=== PATIENT | male | born 1940 | race Caucasian/White ===

== ENCOUNTER 2017-03-25 12:05 | Observation (INO) | payer MEDICARE ==
--- NOTE | 2017-03-25 13:28 | RAD ---
INDICATION: Syncope COMPARISON: June 04, 2004 TECHNIQUE: PA and lateral dual-energy views were obtained. FINDINGS: Bones/Soft Tissues: There are no acute bony findings. There is hypertrophic change about the anterior left first rib, unchanged Cardiomediastinal: The cardiomediastinal silhouette is normal. Lungs: There are no infiltrates. Pleura: There are no pleural effusions. Other: None IMPRESSION: NO ACTIVE DISEASE.
[2017-03-25 13:44] LABS: Hematocrit 48 % (42-52); Mean Corpuscular HGB Conc 34 g/dl (31-36); Mean Corpuscular Hemoglobin 32 pg (27-31); Mean Corpuscular Volume 95 fL (80-94); Mean Platelet Volume 10 um3 (7.4-10.4); Red Cell Distribution Width 14 % (10.5-15); White Blood Count 8.7 10^3/ul (3.5-10.8)
--- NOTE | 2017-03-25 13:53 | RAD ---
HISTORY: Fall, syncope COMPARISONS: None TECHNIQUE: Multiple contiguous axial CT scans were obtained of the head without intravenous contrast. FINDINGS: The study is limited by patient motion artifact. HEMORRHAGE/INFARCT: There is no hemorrhage or acute infarct. MASSES/SHIFT: There is no mass or shift. EXTRA-AXIAL SPACES: There are no extra-axial fluid collections. SULCI AND VENTRICLES: The sulci and ventricles are normal in size and position for the patient's stated age. CEREBRUM: There are no focal parenchymal abnormalities. BRAINSTEM: There are no focal parenchymal abnormalities. CEREBELLUM: There are no focal parenchymal abnormalities. VESSELS: The vessels are grossly normal. PARANASAL SINUSES: The paranasal sinuses are clear. ORBITS: The orbits are unremarkable. BONES AND SOFT TISSUE: No bone or soft tissue abnormalities are noted. OTHER: None IMPRESSION: NO ACUTE INTRACRANIAL PATHOLOGY.
[2017-03-25 13:58] LABS: Albumin 4.3 g/dL (3.2-5.2); BUN/Creatinine Ratio 31.4 (8-20); Calcium 9.9 mg/dL (8.6-10.3); EGFR African American 111.5 (>60); EGFR Non-African American 86.7 (>60); Potassium 3.8 mmol/L (3.5-5.0); Total Bilirubin 0.9 mg/dL (0.2-1.0); Total Protein 7.3 g/dL (6.4-8.9)
[2017-03-25 14:00] LABS: Troponin I 0.01 ng/mL (<0.04)
--- NOTE | 2017-03-25 15:35 | ADMNOTE ---
Subjective Date of Service: 03/25/17 Interval History: ADMISSION HISTORY AND PHYSICAL EXAM: Allergies Allergy/AdvReac Type Severity Reaction Status Date / Time No Known Allergies Allergy Verified 02/05/12 08:05 Home Medications Medication Instructions Recorded Confirmed Type Carbidopa/Levodop 25/100 MG(*) 2 tab PO TID 02/05/12 03/25/17 History [Sinemet 25/100(*)] Carboxymethylcellulos 1% OPTH* 1 drop BOTH EYES QID PRN 02/05/12 03/25/17 History [Celluvisc 1% OPTH*] Lisinopril TAB* [Prinivil TAB*] 2.5 mg PO DAILY 12/22/16 03/25/17 History Metoprolol Tartrate TAB* 50 mg PO DAILY 12/22/16 03/25/17 History [Lopressor TAB*] Aspirin EC Low Dose* [Ecotrin EC 81 mg PO DAILY 03/25/17 03/25/17 History Low Dose 81 MG*] Cod Liver Oil 1 cap PO DAILY 03/25/17 03/25/17 History Omeprazole CAP* [Prilosec CAP* 20 20 mg PO DAILY 03/25/17 03/25/17 History MG] Polyethylene Glycol 3350* 17 gm PO DAILY 03/25/17 03/25/17 History [Miralax*] Tamsulosin CAP* [Flomax CAP*] 0.4 mg PO DAILY 03/25/17 03/25/17 History Warfarin TAB(*) [Coumadin TAB(*)] 5 mg PO .MOTUTHFRSA 03/25/17 03/25/17 History Warfarin TAB(*) [Coumadin TAB(*)] 7.5 mg PO .SUWE 03/25/17 03/25/17 History HPI: About midnight to early AM the [facility] patient was getting ready to go to bed. He usually goes to bed about 1 AM. He was lightheded, and the next thing he remembers is lying on his back on the floor. His was in another room and heard him fall. She states his eyes were open and he didn't move or respond. As she was calling 911 he woke up and in a few minutes he could get up. He refused to go with the EMT crew to the ED. This AM he called his PCP who told him to go to the ED> They called 911 again to bring him. He has had occ episodes of lightheadedness in the past, never had syncope before. Mild back pain from the fall. 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 Lives with his who is his SDM. No alcohol or tobacco use. Past Medical History: Findings - Surgery 1950 for toticollis, was in body cast fro 6 weeks after that. Parkinson's for 6 yrs, sees Dr. Lowe. Chronic persistent a fib, sees Dr. Quijano. Cardioversion x 1. Review of Systems - Measurements Intake and Output: Intake and Output Last 24 Hours 03/23/17 03/24/17 03/25/17 03/26/17 06:59 06:59 06:59 06:59 Weight 160 lb - Review of Systems Constitutional Symptoms: Positive: Weight Loss - 20 lbs in past yr. Dermatology: Positive: Normal HEENT: Positive: Normal Eyes: Positive: Normal Thyroid: Positive: Normal Pulmonary: Positive: Normal Cardiology: Positive: Faintness, Syncope Gastroenterology: Positive: Normal Genital - Urinary: Positive: Normal Musculoskeletal: Positive: Other - upper back pain since his fall Endocrinology: Positive: Normal Neurology: Positive: Other - Parkinson's Psychiatry: Positive: Normal Allergic/Immunologic: Negative: Hx Anaphylaxis, Hx Angioedema, Hx Environmental, Hx Seasonal, Athsma, Hx HIV, Immunocompromise, Swollen Glands LymphNodes, Other Objective Vital Signs - 8 hr 03/25/17 12:26 Temperature 98.6 F Pulse Rate 77 Respiratory 16 Rate Blood Pressure 134/75 (mmHg) O2 Sat by Pulse 100 Oximetry Oxygen Devices in Use Now: None Appearance: Alert, supine on ED stretcher. Neutral affect. Looks comfortable. Eyes: No Scleral Icterus Ears/Nose/Mouth/Throat: Clear Oropharnyx, Mucous Membranes Moist Neck: NL Appearance and Movements; NL JVP Respiratory: Symmetrical Chest Expansion and Respiratory Effort, Clear to Auscultation, Clear to Percussion Cardiovascular: NL Sounds; No Murmurs; No JVD, No Edema, - - irreg Abdominal: NL Sounds; No Tenderness; No Distention, No Hepatosplenomegaly, - Extremities: No Edema, No Clubbing, Cyanosis, - Skin: No Rash or Ulcers, No Nodules or Sclerosis, - Neurological: Alert and Oriented x 3, NL Sensation, - - marked parkinsonian tremor all limbs, subside after 30 minutes. Result Diagrams: 03/25/17 13:20 03/25/17 13:20 Assess/Plan/Problems-Billing Assessment: - Patient Problems (1) Syncope Current Visit: Yes Status: Acute Code(s): R55 - SYNCOPE AND COLLAPSE SNOMED Code(s): 940932042 Comment: Second troponin. Overnight tele monitoring. Stop lisinopril. Consider 4-week event monitor as outpt. Fup Samm Ward. (2) Atrial fibrillation Current Visit: Yes Status: Acute Code(s): I48.91 - UNSPECIFIED ATRIAL FIBRILLATION SNOMED Code(s): 16352430 Comment: Continue metorpolol, warfarin. (3) Parkinson disease Current Visit: Yes Status: Acute Code(s): G20 - PARKINSON'S DISEASE SNOMED Code(s): 83431763 Comment: Continue Ldopa/carbidopa. Fup Dr. Lowe.
[2017-03-25] MEDS ORDERED: Warfarin TAB(*) 5 MG PO SCH (17:00)
[2017-03-25] MEDS: Carbidopa/Levodop 25/100 MG TAB(*) PO SCH (20:33)
[2017-03-25] MEDS: Metoprolol Succinate XL TAB* 25 MG PO SCH (20:34)
[2017-03-26] MEDS ORDERED: Omeprazole CAP* 20 MG PO SCH (07:30)
[2017-03-26] MEDS ORDERED: Tamsulosin CAP* 0.4 MG PO SCH (09:00)
[2017-03-26] MEDS ORDERED: Polyethylene Glycol 3350* 17 GM PACKET PO SCH (09:00)
[2017-03-26] MEDS ORDERED: Aspirin EC Low Dose* 81 MG TAB.EC PO SCH (09:00)
[2017-03-26] MEDS: Carbidopa/Levodop 25/100 MG TAB(*) PO SCH (09:49)
[2017-03-26] MEDS ORDERED: Metoprolol Succinate XL TAB* 50 MG PO SCH (10:00)
[2017-03-26] MEDS ORDERED: Metoprolol Tartrate TAB* 25 MG PO SCH (10:00)
[2017-03-26 11:34] VITALS: BP 155/89
[2017-03-26] MEDS: Metoprolol Succinate XL TAB* 25 MG PO SCH (11:34)
--- NOTE | 2017-03-26 13:42 | DS ---
CC: Joi Cruz MD * DISCHARGE SUMMARY: DATE OF ADMISSION: 03/25/17 DATE OF DISCHARGE: 03/26/17 PRIMARY CARE DOCTOR: Joi Cruz MD PRINCIPAL DIAGNOSIS: Syncope. SECONDARY DIAGNOSES: 1. Parkinson's disorder. 2. Persistent atrial fibrillation. MEDICATIONS ON DISCHARGE: Unchanged from admission, included; 1. Metoprolol tartrate 25 mg twice daily. 2. MiraLAX 17 g daily. 3. Sinemet 25/100, 2 tabs 3 times daily. 4. Cod liver oil 1 tab daily. 5. Celluvisc 1%, 1 drop both eyes 4 times daily as needed. 6. Aspirin 81 mg daily. 7. Coumadin 5 mg Tuesday, Tuesday, , Tuesday, and Tuesday; 7.5 mg Tuesday and Tuesday. 8. Lisinopril 2.5 mg daily. 9. Tamsulosin 0.4 mg daily. 10. Omeprazole 20 mg daily. PERTINENT LABORATORY DATA: Troponin I is 0.01 on consecutive checks. HISTORY OF PRESENT ILLNESS AND HOSPITAL COURSE: This is a 77-year-old man with past medical history as outlined in the history of present illness on day of admission including Parkinson's disorder with notable tremor; paroxysmal atrial fibrillation, on metoprolol tartrate, which was dose confirmed by Dr. Quijano in last note from January, presented to the hospital after having sudden loss of consciousness after standing from a low couch around 11:30 p.m. the night prior to presentation. Of note, the patient has lost about 20 pounds over the last 16 to 18 months unintentionally. He notes he has had episodes of feeing lightheaded upon standing out of the car, which resolved with sitting down. He notes his couch is quite low and he has difficult to getting up from it and is able to use his body's momentum to stand after which on walking away from the couch he became lightheaded and sudden loss of consciousness with rapid return to baseline. He had no notable neurological deficits on presentation to the hospital; however, was monitored on telemetry to evaluate for any malignant arrhythmias. The patient remained in persistent atrial fibrillation. Heart rate is high as 120, although averaging in the 80s. There are several medications that could have contributed to orthostatic hypotension including his metoprolol or his tamsulosin. In the setting of 1 episode of syncope status post standing up from a low couch and in conjunction with weight loss, I suspect this was orthostatic, although was not tested on presentation. I discussed at length with the patient standing from couch slowly, also evaluating for replacement of the couch with one that will be more easy to stand from. Both the patient's son and daughter are present and will assist in replacing the couch. The patient will stand for at least 1 minute flexing his gastrocnemius prior to ambulating. On the day of discharge, he felt back to his baseline, he had no complaints. In regards to his weight loss, he will add at least 1 Ensure daily as a snack or to 1 of his 3 meals per day. Reasons to return to the hospital including, but not limited to recurrent or worsening symptoms, loss of conscious, chest pain, shortness of breath, nausea, vomiting, lightheadedness, bleeding from any source, inability to obtain or tolerate medications were discussed with the patient and his family, they acknowledged understanding. TIME SPENT: Greater than 60 minutes were spent on this discharge of this patient, greater than half was spent [id number] with the patient. [id number]/[facility] #: [id number] ANTHONY
[2017-03-27] MEDS ORDERED: Warfarin TAB(*) 7.5 MG PO SCH (17:00)
--- OUTSIDE RECORDS SUMMARY | 2017-03-28 08:59 | XMS REPORT ---
:1940 Author Organization [facility] MD Care Team Providers Name Role Phone Joi Cruz , [phone] Unavailable Allergies, Adverse Reactions, Alerts No Known Drug Allergies 12/29/2016 Medications Pre-existing:Coumadin 5 mg tablet, Take 1 tablet orally for five days and 1 /Tuesday and Tuesdaytamsulosin 0.4 mg capsule, Take 1 capsule, ext release 24 hr orally Every dayomeprazole 20 mg capsule,delayed release, Take 1 capsule, delayed release (enteric coated) orally Every dayAspirin Low Dose 81 mg tablet, delayed release, Take 1 tablet, delayed release (enteric coated) orally Every day OTCMiralax 17 gram oral powder packet, Take 1 packet orally every day mixed with 8 oz liquidmetoprolol tartrate 25 mg tablet, Take 1 tablet orally Twice a daylisinopril 2.5 mg tablet, Take 1 tablet orally Every daySinemet 25 mg-100 mg tablet, Take 2 tablet orally Three times a day Problems Encounter for immunization (Z23) 01/06/2017 Pre-existing: shelter (current) use of anticoagulants (Z79.01) Benign prostatic hyperplasia with lower urinary tract symptoms (N40.1) Abnormal weight loss (R63.4) 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) Edema, unspecified (R60.9) Persistent atrial fibrillation (I48.1) Gastro-esophageal reflux disease without esophagitis (K21.9) Essential (primary) hypertension (I10) Parkinson's disease (G20) Results INR: 1.94 10/29/2016 INR: 2.88 11/12/2016 INR: 1.82 12/17/2016 O2 sat: 98 01/04/2017 SODIUM: 141 MMOL/L 01/04/2017 Potassium: 4.5 MMOL/L 01/04/2017 CHLORIDE: 107 MMOL/L 01/04/2017 CO2 Carbon Dioxide: 27 MMOL/L 01/04/2017 Anion Gap: 7 MMOL/L 01/04/2017 Glucose: 96 MG/DL 01/04/2017 Blood Urea Nitrogen: 28 MG/DL 01/04/2017 Creatinine: 1 MG/DL 01/04/2017 BUN/CREATININE RATIO: 28 01/04/2017 CALCIUM: 9.7 MG/DL 01/04/2017 Total Protein: 6.5 G/DL 01/04/2017 Albumin: 3.9 G/DL 01/04/2017 Globulin: 2.6 G/DL 01/04/2017 Albumin/Globulin Ratio: 1.5 01/04/2017 Total Bilirubin: 0.8 MG/DL 01/04/2017 ALKALINE PHOSPHATASE: 78 U/L 01/04/2017 ALT: 10 U/L 01/04/2017 AST: 17 U/L 01/04/2017 eGFR NON-: 73 01/04/2017 eGFR : 93.9 01/04/2017 C Reactive Protein: 3.61 MG/L 01/04/2017 HIV Testing: Not Indicated due to age 901/04/2017 Hepatitis C Testing: Not Indicated due to age 901/04/2017 INR: 1.96 01/11/2017 INR: 2.07 01/25/2017 INR: 2.36 02/08/2017 INR: 2.55 03/10/2017 INR: 2.64 03/25/2017 White Blood Count: 8.7 10 3/ul 03/25/2017 Red Blood Count: 5 10 6/ul 03/25/2017 HEMOGLOBIN: 16 G/DL 03/25/2017 HEMATOCRIT: 48 % 03/25/2017 Mean Corpuscular Volume: 95 fL 03/25/2017 Mean Corpuscular Hemoglobin: 32 pg 03/25/2017 Mean Corpuscular HGB Conc: 34 G/DL 03/25/2017 Red Cell Distribution Width: 14 % 03/25/2017 Platelet Count: 193 10 3/ul 03/25/2017 MEAN PLATELET VOLUME: 10 um3 03/25/2017 ABS Neutrophils: 6.4 10 3/ul 03/25/2017 ABS Lymphocytes: 1.1 10 3/ul 03/25/2017 ABS Monocytes: 1.1 10 3/ul 03/25/2017 ABS EOSINOPHILS: 0.1 10 3/ul 03/25/2017 ABS BASOPHILS: 0 10 3/ul 03/25/2017 ABS Nucleated RBC: 0.01 10 3/ul 03/25/2017 Granulocyte %: 73.6 % 03/25/2017 Lymphocyte %: 12.3 % 03/25/2017 Monocyte %: 12.8 % 03/25/2017 EOSINOPHIL %: 0.9 % 03/25/2017 BASOPHIL %: 0.4 % 03/25/2017 Nucleated Red Blood Cells %: 0.1 03/25/2017 SODIUM: 138 MMOL/L 03/25/2017 Potassium: 3.8 MMOL/L 03/25/2017 CHLORIDE: 105 MMOL/L 03/25/2017 CO2 Carbon Dioxide: 28 MMOL/L 03/25/2017 Anion Gap: 5 MMOL/L 03/25/2017 Glucose: 82 MG/DL 03/25/2017 Blood Urea Nitrogen: 27 MG/DL 03/25/2017 Creatinine: 0.86 MG/DL 03/25/2017 BUN/CREATININE RATIO: 31.4 03/25/2017 CALCIUM: 9.9 MG/DL 03/25/2017 Total Protein: 7.3 G/DL 03/25/2017 Albumin: 4.3 G/DL 03/25/2017 Globulin: 3 G/DL 03/25/2017 Albumin/Globulin Ratio: 1.4 03/25/2017 Total Bilirubin: 0.9 MG/DL 03/25/2017 ALKALINE PHOSPHATASE: 102 U/L 03/25/2017 ALT: 11 U/L 03/25/2017 AST: 25 U/L 03/25/2017 eGFR NON-: 86.7 03/25/2017 eGFR : 111.5 03/25/2017 Troponin I: 0.01 NG/ML 03/25/2017 Chief Complaint/Reason for Visit lightheadedness/New patient Procedures Performed and Ordered Today Current Medications Documented 01/04/2017Has no current behavior issues 2016No communication needs 01/04/2017No Unhealthy Behaviors 2016Venipuncture CRP,CMP 01/04/2017OV, Initial Exam L5 01/04/2017 Lab: *CBC - CBC w/electronic differential 01/04/2017 Test: Colonoscopy tubular adenoma x 1; 5y f/u 06/24/2011 Colonoscopy benign mucosa, diverticulosis; no further testing 12/27/2016 Pneumovax 02/10/2007 Immunization: Influenza 0.5 (>=3 Yrs) 12/31/2015 Prevnar 13 01/04/2017 Fluzone High Dose-Age 65 & older 01/04/2017 Vital signs Temp: Pulse: Resp: BP: Ht: Wt: BMI: O2 Sat: 97.4F 66/Min 20/Min 126/76 5ft, 10in 160lbs 22.631 98% 01/04/2017 01/04/2017 01/04/2017 mmHg 01/04/2017 01/04/2017 01/04/2017201601/04/2017 Immunizations Pneumovax 02/10/2007 Influenza 0.5 (>=3 Yrs) 12/31/2015 Prevnar 13 01/04/2017 Fluzone High Dose-Age 65 & older 01/04/2017 Prevnar 13 01/04/2017 Fluzone High Dose-Age 65 & older 01/04/2017 Smoking Status: Never smoker. Reason for Referral Functional Status Plan of Treatment Appointments Scheduled: Wednesday, January 04, 2017, 11:30 AM, Joi Cruz MD April, 1:00 PM, Joi Cruz MD Payers Insurance Policy Type Policy ID Relation Subscriber Expiration [employer] Commercial MEBMSLST Self [employer] Insurance Insurance YPlan [employer] Commercial MEBMSLST Self [employer] Insurance Insurance YPlan Encounters CPT4 Code Encounter Date [id number] New Patient 01/04/2017 11:46:35 AM Level 5
--- OUTSIDE RECORDS SUMMARY | 2017-03-28 08:59 | XMS REPORT ---
:1940 Author Organization [facility] De [facility] MD Care Team Providers Name Role Phone Joi rCuz , [phone] Unavailable Allergies, Adverse Reactions, Alerts No Known [...] Problems Encounter for immunization (Z23) 01/06/2017 Pre-existing: [facility] (current) use of anticoagulants (Z79.01) Benign prostatic [...] 01/25/2017 INR: 2.36 02/08/2017 INR: 2.55 03/10/2017 Chief Complaint/Reason for Visit lightheadedness/New patient Procedures Performed and Ordered Today Current Medications Documented 01/04/2017OV, Initial Exam L5 2016Venipuncture CRP,CMP 01/04/2017Has no current behavior issues 01/04/2017No communication needs 01/04/2017No Unhealthy Behaviors 01/04/2017 Lab: *CBC - CBC w/electronic differential [...] Relation Subscriber Expiration [employer] Commercial MEBMSLST Self [id number] Insurance Insurance [employer] A[employer] Commercial MEBMSLST Self [id number] Insurance Insurance [employer] Encounters CPT4 Code Encounter Date [id number] New Patient 01/04/2017 11:46:35 AM Level 5
== END 2017-03-26 13:10 | disposition home or self-care (01) ==
LOC: ED 12:05 → MEDTELE 15:35
PROVIDERS: ADMIT Internal Medicine; ATTEND Internal Medicine
DX: R55 Syncope and collapse (principal); G20 Parkinson's disease; I48.1 Persistent atrial fibrillation; Z79.01 Long term (current) use of anticoagulants
CPT/HCPCS: 36415; 70450; 71020; 80053; 84484; 85025; 85610; 93005; 99283; A9270-GY; G0378

== ENCOUNTER 2018-06-26 15:15 | Emergency (ER) | payer OTHER ==
--- NOTE | 2018-06-26 16:54 | ED ---
Head Injury - HPI Summary HPI Summary: This pt is a 78 y/o male presenting to [facility] c/o abrasion on right side of forehead s/p trip and fall today. Pt reports he tripped and fell hitting the right side of his forehead on the floor today. Denies LOC. Pt remembers the whole event. He states initially he did not have any pain, but currently he rates his pain 1/10 in severity and describes it as an ache. Denies any other pain, neck pain, chest pain, SOB, nausea, vomiting. PMHx includes afib, parkinson's. Pt is anticoagulated on Warfarin. His PCP is Dr. Cruz. His last tetanus shot is unknown. - History Of Current Complaint Chief Complaint: EDHeadInjury Stated Complaint: FALL HEAD INJURY PER PT Time Seen by Provider: 06/26/18 16:48 Hx Obtained From: Patient Mechanism Of Injury: Direct Blow Onset/Duration: Traumatic, Still Present Onset of Pain: Minutes, Post Accident Severity Currently: Mild Pain Intensity: 1 Pain Scale Used: 0-10 Numeric Location of Head Injury: Frontal Location: Discrete At: - right frontal area Character: Aching Aggravating Factor(s): Other: - nothing Alleviating Factor(s): Other: - nothing Associated Signs And Symptoms: Negative Anticoagulant Therapy: Coumadin - Allergies/Home Medications Allergies/Adverse Reactions: Allergies Allergy/AdvReac Type Severity Reaction Status Date / Time No Known Allergies Allergy Verified 06/26/18 15:21 PMH/Surg Hx/FS Hx/Imm Hx Endocrine/Hematology History: Denies: Hx Diabetes, Hx Thyroid Disease Cardiovascular History: Reports: Hx Atrial Fibrillation, Hx Hypertension Respiratory History: Denies: Hx Asthma, Hx Chronic Obstructive Pulmonary Disease (COPD) GI History: Denies: Hx Ulcer Sensory History: Reports: Hx Contacts or Glasses Denies: Hx Hearing Aid Opthamlomology History: Reports: Hx Contacts or Glasses Neurological History: Reports: Other Neuro Impairments/Disorders - Parkinson's - Surgical History Surgery Procedure, Year, and Place: Torticollis, surgery at age 11 years. 1951 - Immunization History Date of Influenza Vaccine: 12/2016 Infectious Disease History: No Infectious Disease History: Denies: Hx Hepatitis, Hx Human Immunodeficiency Virus (HIV), Traveled Outside the [place] in Last 30 Days - Family History Known Family History: Positive: Hypertension - Social History Alcohol Use: Occasionally Substance Use Type: Reports: None Smoking Status (MU): Never Smoked Tobacco Review of Systems Negative: Fever, Chills Negative: Chest Pain Negative: Shortness Of Breath Negative: Vomiting, Nausea Negative: Other - NEG: neck pain Skin: Other - POS: abrasion on right side of forehead All Other Systems Reviewed And Are Negative: Yes Physical Exam - Summary Physical Exam Summary: VITAL SIGNS: Reviewed. GENERAL: Patient is a well-developed and nourished male who is lying comfortable in the stretcher. Patient is not in any acute respiratory distress. HEAD AND FACE: Abrasion on the right side of the forehead. EYES: PERRLA, EOMI x 2, No injected conjunctiva, no nystagmus. EARS: Hearing grossly intact. Ear canals and tympanic membranes are within normal limits. MOUTH: Oropharynx within normal limits. NECK: Supple, trachea is midline, no adenopathy, no JVD, no carotid bruit, no c- spine tenderness, neck with full ROM. CHEST: Symmetric, no tenderness at palpation LUNGS: Clear to auscultation bilaterally. No wheezing or crackles. CVS: Irregularly irregular rate and rhythm, S1 and S2 present, no murmurs or gallops appreciated. ABDOMEN: Soft, non-tender. No signs of distention. No rebound, no guarding, and no masses palpated. Bowel sounds are normal. EXTREMITIES: FROM in all major joints, no edema, no cyanosis or clubbing. NEURO: Alert and oriented x 3. No acute neurological deficits. Speech is normal and follows commands. Chronic resting tremors secondary to Parkinson's. SKIN: Dry and warm. Abrasion on right side of forehead. Triage Information Reviewed: Yes Vital Signs On Initial Exam: Initial Vitals Temp Pulse Resp BP Pulse Ox 97.6 F 71 16 135/70 98 06/26/18 15:18 06/26/18 15:18 06/26/18 15:18 06/26/18 15:18 06/26/18 15:18 Vital Signs Reviewed: Yes Diagnostics - Vital Signs Vital Signs Temp Pulse Resp BP Pulse Ox 06/26/18 15:18 97.6 F 71 16 135/70 98 - Laboratory Lab Statement: Any lab studies that have been ordered have been reviewed, and results considered in the medical decision making process. - CT Brain CT CT Interpretation Completed By: Radiologist Summary of CT Findings: IMPRESSION: There is no evidence of intracranial mass or hemorrhage noted. Dr. Cespedes has reviewed this report. Head Injury Course/Dx Assessment/Plan: This patient is a 78-year-old male who presents to the emergency room with a chief complaint of an accidental fall. The patient has a small abrasion on the right side of the forehead. Patient denies any loss of consciousness, denies any neck pain, he has no other complaints. Head CT impression: No evidence for intracranial mass or hemorrhage. In the ED course the patient is a stable. The patient is alert and oriented 3. I discussed all the findings and test results with the patient and the patients and they agree to go home and follow up with the primary care physician. They declined the tetanus booster in the emergency department, they prefer to follow up with the primary care physician and get the tetanus booster if needed there. Patient is hemodynamically stable, alert and oriented 3. - Diagnoses Provider Diagnoses: Contusion of head, Abrasion Discharge - Sign-Out/Discharge Documenting (check all that apply): Patient Departure - Discharge home Patient Received Moderate/Deep Sedation with Procedure: No - Discharge Plan Condition: Stable Disposition: HOME Patient Education Materials: Contusion in Adults (ED), Abrasion (ED) Referrals: Joi Cruz MD [Primary Care Provider] - Additional Instructions: FOLLOW UP WITH YOUR PRIMARY CARE PROVIDER IN 2-3 DAYS. RETURN TO THE ED FOR ANY NEW OR WORSENING SYMPTOMS. - Attestation Statements Document Initiated by Scribe: Yes Documenting Scribe: Jill Cortez Provider For Whom Scribe is Documenting (Include Credential): Norberto Cespedes MD Scribe Attestation: Jill Kohli, scribed for Norberto Cespedes MD on 06/26/18 at 1754. Status of Scribe Document: Ready
[2018-06-26 17:19] VITALS: BP 170/95
== END 2018-06-26 17:18 | disposition home or self-care (01) ==
LOC: ED 15:15
DX: S00.81XA Abrasion of other part of head, initial encounter (principal); S00.93XA Contusion of unspecified part of head, initial encounter; W01.0XXA Fall on same level from slipping, tripping and stumbling without subsequent striking against object, initial encounter; Y92.9 Unspecified place or not applicable; Z79.01 Long term (current) use of anticoagulants; I10 Essential (primary) hypertension
CPT/HCPCS: 70450; 99282

== ENCOUNTER → 2019-06-06 19:21 | Emergency (ER) | payer MEDICARE, OTHER ==
--- NOTE | 2019-06-06 19:41 | ED ---
Adult Trauma - HPI Summary HPI Summary: This patient is a 79 year old M BIBA via EMS to ED with a chief complaint of fall since [employer]. Patient has a PMHx of Parkinsons and atrial fibrillation on warfarin. While falling, patient reports hitting the top of his head and now has an abrasion. Patient denies losing consciousness and any pain. Several weeks ago, patient had an XR that diagnosed a fractured tailbone, but he has never had any pain from it. Patient denies any neck pain. The patient rates the pain 0/10 in severity. Symptoms aggravated by nothing. Symptoms alleviated by nothing. Medications reviewed. Allergies noted. - History of Current Complaint Chief Complaint: EDFall Stated Complaint: FALL PER EMS Time Seen by Provider: 06/06/19 19:28 Hx Obtained From: Patient Mechanism of Injury: Fall Loss of Consciousness: no loss of consciousness Onset/Duration: Started Minutes Ago - [employer] Onset Severity: Mild Current Severity: None Pain Intensity: 0 Pain Scale Used: 0-10 Numeric Location: Head Aggravating Factor(s): Nothing Alleviating Factor(s): Nothing Associated Signs & Symptoms: Positive: Negative - Neck pain, any pain, Other: - Abrasion to top of head - Allergy/Home Medications Allergies/Adverse Reactions: Allergies Allergy/AdvReac Type Severity Reaction Status Date / Time No Known Allergies Allergy Verified 06/06/19 19:37 Home Medications: Home Medications Carbidopa/Levodop 25/100 MG(*) [Sinemet 25/100 TAB(*)] 2 tab PO TID 02/05/12 [ History Confirmed 03/25/17] Carboxymethylcellulos 1% OPTH* [Celluvisc 1% OPTH*] 1 drop BOTH EYES QID PRN 06/04 [History Confirmed 03/25/17] Lisinopril TAB* [Prinivil TAB 5 MG*] 2.5 mg PO DAILY 12/22/16 [History Confirmed 03/25/17] Aspirin EC TAB* [Ecotrin EC Low Dose 81 MG*] 81 mg PO DAILY 03/25/17 [History Confirmed 03/25/17] Cod Liver Oil 1 cap PO DAILY 03/25/17 [History Confirmed 03/25/17] Omeprazole CAP (NF) [Prilosec CAP* 20 MG] 20 mg PO DAILY 03/25/17 [History Confirmed 03/25/17] Polyethylene Glycol 3350* [Miralax (17 GM DOSE MARNIE)] 17 gm PO DAILY 03/25/17 [ History Confirmed 03/25/17] Tamsulosin CAP* [Flomax CAP*] 0.4 mg PO DAILY 03/25/17 [History Confirmed ] Warfarin TAB(*) [Coumadin TAB(*)] 5 mg PO .MOTUTHFRSA 03/25/17 [History Confirmed 03/25/17] Warfarin TAB(*) [Coumadin TAB(*)] 7.5 mg PO .SUWE 03/25/17 [History Confirmed ] Metoprolol Tartrate TAB* [Lopressor TAB*] 25 mg PO BID tab 03/26/17 [Rx] PMH/Surg Hx/FS Hx/Imm Hx Endocrine/Hematology History: Denies: Hx Diabetes, Hx Thyroid Disease Cardiovascular History: Reports: Hx Atrial Fibrillation, Hx Hypertension Respiratory History: Denies: Hx Asthma, Hx Chronic Obstructive Pulmonary Disease (COPD) GI History: Denies: Hx Ulcer Sensory History: Reports: Hx Contacts or Glasses Denies: Hx Hearing Aid Opthamlomology History: Reports: Hx Contacts or Glasses Neurological History: Reports: Other Neuro Impairments/Disorders - Parkinson's - Surgical History Surgery Procedure, Year, and Place: Torticollis, surgery at age 11 years. 1951 - Immunization History Date of Influenza Vaccine: 12/2016 Immunizations Up to Date: Yes Infectious Disease History: Denies: Hx Hepatitis, Hx Human Immunodeficiency Virus (HIV), Traveled Outside the [place] in Last 30 Days - Family History Known Family History: Positive: Hypertension - Social History Alcohol Use: Occasionally Hx Substance Use: No Substance Use Type: Reports: None Hx Tobacco Use: No Smoking Status (MU): Never Smoked Tobacco Review of Systems Musculoskeletal: Negative - Neck pain Skin: Other - Abrasion to head All Other Systems Reviewed And Are Negative: Yes Physical Exam - Summary Physical Exam Summary: Constitutional: Well-developed, Well-nourished, Alert. (-) Distressed. Coarse resting tremor. Skin: Warm, Dry HENT: 3cm x 3cm area of swelling to the posterior occiput Eyes: Conjunctiva normal Neck: Musculoskeletal ROM normal neck. (-) JVD, (-) Stridor, (-) Tracheal deviation Cardio: Rhythm regular, rate normal, Heart sounds normal; Intact distal pulses. Radial pulses are 2+ and symmetric. (-) Murmur Pulmonary/Chest wall: Effort normal. (-) Respiratory distress, (-) Wheezes, (-) Rales Abd: Soft. (-) Tenderness, (-) Distension, (-) Guarding, (-) Rebound Musculoskeletal: (-) Edema Lymph: (-) Cervical adenopathy Neuro: Alert, Oriented x3, Strength normal, Cranial nerves II-XII are grossly intact. (-) Dysmetria, (-) Nystagmus, (-) Ataxia by finger to nose testing, (-) Sensory deficit. GCS: 15 Psych: Mood and affect Normal Triage Information Reviewed: Yes Vital Signs On Initial Exam: Initial Vitals Temp Pulse Resp BP Pulse Ox 98 F 74 20 193/103 96 06/06/19 19:25 06/06/19 19:25 06/06/19 19:25 06/06/19 19:25 06/06/19 19:25 Vital Signs Reviewed: Yes Procedures - Sedation Patient Received Moderate/Deep Sedation with Procedure: No Diagnostics - Vital Signs Vital Signs Temp Pulse Resp BP Pulse Ox 06/06/19 19:32 80 97 06/06/19 19:30 193/103 06/06/19 19:29 191/114 06/06/19 19:25 98 F 74 20 193/103 96 - Laboratory Lab Statement: Any lab studies that have been ordered have been reviewed, and results considered in the medical decision making process. - CT Brain CT Interpretation Completed By: Radiologist Summary of CT Findings: 1. There is stable age-related diffuse cerebral volume loss and chronic microvascular ischemic disease. 2. No acute intracranial pathology. Dr. Ladd has reviewed this radiology report. Re-Evaluation - Re-Evaluation First Eval Re-Evaluation Time: 20:31 Comment: Discussed results with patient. Patient will be discharged home with dx of fall. Patient understands and agrees with this plan. Adult Trauma Course/Dx - Course Course Of Treatment: Patient is here after a mechanical fall. Patient hit the back of his head. Patient is on warfarin for his atrial fibrillation. Patient has no other injuries. Patient had a CT scan of his brain which showed no evidence of intracranial hemorrhage. Patient will be monitored tonight by his . - Diagnoses Provider Diagnoses: Fall Discharge ED - Sign-Out/Discharge Documenting (check all that apply): Patient Departure - Discharge - Discharge Plan Condition: Stable Disposition: HOME Patient Education Materials: Fall Prevention (ED) Referrals: Joi Cruz MD [Primary Care Provider] - 3 Days Additional Instructions: Come back if you have repeated vomiting, slurred speech, one-sided weakness, or any other abnormal symptoms. - Billing Disposition and Condition Condition: STABLE Disposition: Home - Attestation Statements Document Initiated by Scribe: Yes Documenting Scribe: Bradford Mckeon Provider For Whom Chanel is Documenting (Include Credential): Sherwin Ladd MD Scribe Attestation: Bradford Kohli, scribed for Sherwin Ladd MD on 06/06/19 at 2038. Scribe Documentation Reviewed: Yes Provider Attestation: The documentation as recorded by the Bradford randolph accurately reflects the service I personally performed and the decisions made by me, Sherwin Ladd MD Status of Scribe Document: Viewed
[2019-06-06 21:43] VITALS: BP 148/78
== END | disposition home or self-care (01) ==
LOC: ED 19:21
DX: Z04.3 Encounter for examination and observation following other accident (principal); W19.XXXA Unspecified fall, initial encounter; Y92.9 Unspecified place or not applicable; G20 Parkinson's disease; I48.91 Unspecified atrial fibrillation; I10 Essential (primary) hypertension; Z79.01 Long term (current) use of anticoagulants; Z79.899 Other long term (current) drug therapy
CPT/HCPCS: 70450; 99282

== ENCOUNTER 2019-07-29 22:02 | Inpatient (IN) | payer MEDICARE, OTHER ==
--- NOTE | 2019-07-29 22:25 | ED ---
Adult Trauma - HPI Summary HPI Summary: Patient complains of injury to right side head, right hip pain and right knee pain status post mechanical fall from standing position tonight. Patient states he tripped over a rug and fell on the same rug. History of Parkinson's. Denies vision change, headache, N/V, facial pain, trauma, neck pain, back pain , fever, cough, sore throat, CP, SOB, N/V/D, abdominal pain, change in urine, change in BM. Patient is on Coumadin. - History of Current Complaint Chief Complaint: EDFall Stated Complaint: FALL PER EMS Time Seen by Provider: 07/29/19 22:18 Hx Obtained From: Patient Mechanism of Injury: Fall Ambulatory at the Scene: No Onset of Pain: Immediate Onset Severity: Moderate Current Severity: Moderate Pain Intensity: 4 Pain Scale Used: 0-10 Numeric Location: Head, Extremities Aggravating Factor(s): Movement Associated Signs & Symptoms: Positive: Negative - Allergy/Home Medications Allergies/Adverse Reactions: Allergies Allergy/AdvReac Type Severity Reaction Status Date / Time No Known Allergies Allergy Verified 07/29/19 23:06 Home Medications: Home Medications Carbidopa/Levodop 25/100 MG(*) [Sinemet 25/100 TAB(*)] 2 tab PO TID 02/05/12 [ History Confirmed 07/29/19] Carboxymethylcellulos 1% OPTH* [Celluvisc 1% OPTH*] 1 drop BOTH EYES QID PRN 06/04 [History Confirmed 07/29/19] Lisinopril TAB* [Prinivil TAB 5 MG*] 2.5 mg PO DAILY 12/22/16 [History Confirmed 07/29/19] Aspirin EC TAB* [Ecotrin EC Low Dose 81 MG*] 81 mg PO DAILY 03/25/17 [History Confirmed 07/29/19] Cod Liver Oil 1 cap PO DAILY 03/25/17 [History Confirmed 07/29/19] Omeprazole CAP (NF) [Prilosec CAP* 20 MG] 20 mg PO DAILY 03/25/17 [History Confirmed 07/29/19] Polyethylene Glycol 3350* [Miralax (17 GM DOSE MARNIE)] 17 gm PO DAILY 03/25/17 [ History Confirmed 07/29/19] Tamsulosin CAP* [Flomax CAP*] 0.4 mg PO DAILY 03/25/17 [History Confirmed ] Warfarin TAB(*) [Coumadin TAB(*)] 5 mg PO .MOTUTHFRSA 03/25/17 [History Confirmed 07/29/19] Warfarin TAB(*) [Coumadin TAB(*)] 7.5 mg PO .SUWE 03/25/17 [History Confirmed ] Metoprolol Tartrate TAB* [Lopressor TAB*] 25 mg PO BID tab 03/26/17 [Rx Confirmed 07/29/19] PMH/Surg Hx/FS Hx/Imm Hx Endocrine/Hematology History: Denies: Hx Diabetes, Hx Thyroid Disease Cardiovascular History: Reports: Hx Atrial Fibrillation, Hx Hypertension Respiratory History: Denies: Hx Asthma, Hx Chronic Obstructive Pulmonary Disease (COPD) GI History: Denies: Hx Ulcer History: Denies: Hx Dialysis Sensory History: Reports: Hx Contacts or Glasses Denies: Hx Hearing Aid Opthamlomology History: Reports: Hx Contacts or Glasses EENT History: Denies: Hx Deafness Neurological History: Reports: Other Neuro Impairments/Disorders - Parkinson's - Surgical History Surgery Procedure, Year, and Place: Torticollis, surgery at age 11 years. 1951 - Immunization History Date of Influenza Vaccine: 12/2016 Infectious Disease History: No Infectious Disease History: Denies: Hx Hepatitis, Hx Human Immunodeficiency Virus (HIV), Traveled Outside the [place] in Last 30 Days - Family History Known Family History: Positive: Hypertension - Social History Alcohol Use: Occasionally Hx Substance Use: No Substance Use Type: Reports: None Hx Tobacco Use: No Smoking Status (MU): Never Smoked Tobacco Review of Systems Constitutional: Negative Eyes: Negative ENT: Negative Cardiovascular: Negative Respiratory: Negative Gastrointestinal: Negative Genitourinary: Negative Musculoskeletal: Other Skin: Negative Neurological/Mental Status: Negative Psychological: Normal All Other Systems Reviewed And Are Negative: Yes Physical Exam - Summary Physical Exam Summary: Neuro exam normal. Small laceration to right side lateral eyebrow. No erythema , ecchymosis, deformity, swelling noted to right knee, right hip. PMS intact distally No pain with palpation of neck, back, chest, abdomen. Patient moves bilateral upper extremities freely. Moves left lower extremity freely. Triage Information Reviewed: Yes Vital Signs On Initial Exam: Initial Vitals Temp Pulse Resp BP Pulse Ox 97.9 F 100 16 165/111 100 07/29/19 22:10 07/29/19 22:10 07/29/19 22:10 07/29/19 22:10 07/29/19 22:10 Vital Signs Reviewed: Yes Appearance: Positive: Well-Appearing Skin: Positive: Warm Head/Face: Positive: Normal Head/Face Inspection Eyes: Positive: Normal Dental: Negative: Dental Fracture @, Bleeding Neck: Positive: Supple Respiratory/Lung Sounds: Positive: Clear to Auscultation Cardiovascular: Positive: Normal Abdomen Description: Positive: Nontender Musculoskeletal: Positive: Normal Neurological: Positive: Normal Psychiatric: Positive: Normal AVPU Assessment: Alert - Sayda Coma Scale Best Eye Response: 4 - Spontaneous Best Motor Response: 6 - Obeys Commands Best Verbal Response: 5 - Oriented Coma Scale Total: 15 Procedures - Sedation Patient Received Moderate/Deep Sedation with Procedure: No Diagnostics - Vital Signs Vital Signs Temp Pulse Resp BP Pulse Ox 07/29/19 22:10 97.9 F 100 16 165/111 100 - Laboratory Lab Statement: Any lab studies that have been ordered have been reviewed, and results considered in the medical decision making process. Adult Trauma Course/Dx - Course Course Of Treatment: Patient complains of injury to right side head, right hip pain and right knee pain status post mechanical fall from standing position tonight. Patient states he tripped over a rug and fell on the same rug. History of Parkinson's. Denies vision change, headache, N/V, facial pain, trauma, neck pain, back pain, fever, cough, sore throat, CP, SOB, N/V/D, abdominal pain, change in urine, change in BM. Patient is on Coumadin. Vital signs within normal limits. Brain CT negative. X-ray right knee negative. X- ray right hip positive for intertrochanteric fracture. Orthopedics Dr. Vann advised. Patient admitted to hospitalist. - Diagnoses Provider Diagnoses: Hip fracture, Fall - Critical Care Time Critical Care Statement: Critical care time is provided exclusive of any time spent performing procedures. Discharge ED - Sign-Out/Discharge Documenting (check all that apply): Patient Departure - Discharge Plan Condition: Stable Disposition: ADMITTED TO [facility] Referrals: Stone Beasley MD [Primary Care Provider] - - Billing Disposition and Condition Condition: STABLE Disposition: Admitted to [facility]
[2019-07-29 23:45] LABS: ABS Eosinophils 0.2 10^3/ul (0-0.6); ABS Lymphocytes 0.7 10^3/ul (1.0-4.8); ABS Monocytes 0.9 10^3/ul (0-0.8); ABS Neutrophils 9.2 10^3/ul (1.5-7.7); Eosinophil % 1.9 %; Hematocrit 42 % (42-52); Hemoglobin 14.1 g/dL (14.0-18.0); Lymphocyte % 6.3 %; Mean Corpuscular HGB Conc 34 g/dL (31-36); Mean Corpuscular Hemoglobin 31 pg (27-31); Mean Corpuscular Volume 93 fL (80-94); Mean Platelet Volume 9.1 fL (7.4-10.4); Platelet Count 213 10^3/uL (150-450); Red Blood Count 4.51 10^6 /uL (4.18-5.48); Red Cell Distribution Width 14 % (10-15)
[2019-07-29 23:48] LABS: INR 3.07 (0.82-1.09)
[2019-07-29] MEDS ORDERED: Diltiazem IV push/loading dose 5 MG/ML 5 ML vial (25 mg) IV SLOW PU ONE (23:59)
[2019-07-30 00:01] LABS: ALT 13 U/L (7-52); AST 24 U/L (13-39); Albumin 3.8 g/dL (3.2-5.2); Albumin/Globulin Ratio 1.2 (1-3); Alkaline Phosphatase 119 U/L (34-104); Anion Gap 5 mmol/L (2-11); Blood Urea Nitrogen 34 mg/dL (6-24); CO2 Carbon Dioxide 31 mmol/L (22-32); Calcium 9.6 mg/dL (8.6-10.3); Chloride 105 mmol/L (101-111); EGFR African American 105.8 (>60); EGFR Non-African American 87.4 (>60); Globulin 3.1 g/dL (2-4); Glucose 87 mg/dL (70-100); Potassium 4.8 mmol/L (3.5-5.0); Sodium 141 mmol/L (135-145); Total Protein 6.9 g/dL (6.4-8.9)
[2019-07-30 00:05] LABS: Troponin I 0.04 ng/mL (<0.03)
[2019-07-30] MEDS ORDERED: Ondansetron INJ* 2 MG/ML VIAL IV PRN (00:31)
[2019-07-30] MEDS ORDERED: oxyCODONE/Acetamin 5/325 MG* TAB PO PRN ×2 (00:31→00:54)
[2019-07-30] MEDS ORDERED: Acetaminophen TAB* 325 MG PO PRN (00:31)
[2019-07-30] MEDS ORDERED: Cyclobenzaprine TAB* 10 MG PO PRN (00:47)
[2019-07-30] MEDS ORDERED: Carboxymethylcellulos 1% OPTH* 1 DROP AMP BOTH EYES PRN (00:48)
[2019-07-30] MEDS ORDERED: Phytonadione Oral Solution* 5 MG/25 ML UDC PO ONE (01:33)
[2019-07-30] MEDS ORDERED: Aspirin 81 mg CHEW TAB* 81 MG TAB.CHEW PO ONE (02:54)
[2019-07-30] MEDS ORDERED: Metoprolol Tartrate TAB* 25 MG PO ONE (02:55)
--- NOTE | 2019-07-30 04:32 | HP ---
Amended report to enter cosigning physician. ADMISSION HISTORY AND PHYSICAL: DATE OF ADMISSION: 07/30/19 PROVIDER: Zuly Newsome NP ATTENDING PHYSICIAN: Dr. Belcher.* PRIMARY CARE PHYSICIAN: Dr. Olmos as well as Dr. Beasley. CODE STATUS CONVERSATION: The computer has a MOLST form on file from 2016 that states he wishes to be a DNR. When I asked the patient about this, he stated that he wanted to have a conversation with his family members tomorrow before updating the MOLST form. CHIEF COMPLAINT: Status post fall with right hip and knee pain. HISTORY OF PRESENT ILLNESS: This is a 79-year-old male with a past medical history significant for hypertension, Parkinson, and AFib who came to the emergency room on 07/29/19 after falling at his house. He states that due to his Parkinson, he typically wears thick soled shoes around the house for traction, however, he frequently has trouble with walking over the carpet in his living room and stated that his foot got caught on the carpeting in his living room and then he fell. He denied any prodromal symptoms such as narrowing of vision, chest pain, palpitations, lightheadedness, or dizziness. He stated that this is happened to him in the past. He denied losing any consciousness. He stated that within the past few months, his Sinemet dosing had been changed. Now, he is taking 2 tabs twice a day, though he feels that they are no longer helping his symptoms as well as they used to. He states that he was diagnosed with Parkinson 10 year ago. In the emergency room, labs were drawn. Brain CT, hip/pelvis x-ray, and knee x-ray were performed. The x- rays revealed right intertrochanteric fracture and labs revealed a troponin of 0.04. However, he denied any symptoms of chest pain. His heart rate was also found to be in the 120's and was given one dose of 10mg of IV Diltiazem, which rapidly decreased heart rate to the 80's. Hospitalists were asked to evaluate the patient for admission. PAST MEDICAL HISTORY: BPH, hypertension, Parkinson, AFib, torticollis, and GERD. PAST SURGICAL HISTORY: In 1951, he had surgery to fix his torticollis. FAMILY HISTORY: He has a family history of hypertension and aunts and uncles with diabetes. SOCIAL HISTORY: Never smoked, no recreational substances, and occasional ETOH use. REVIEW OF SYSTEMS: A 12-point system review was performed which was positive for right hip and knee pain, difficulty urinating due to embarrassment, baseline numbness and tingling to bilateral feet, right greater than left. Denied any dizziness, lightheadedness, chest pain, palpitations, abdominal pain , nausea, vomiting. PHYSICAL EXAMINATION GENERAL: This is a well-developed, older gentleman seen resting in the stretcher in the ER, noted significant tremor of the upper extremities. VITAL SIGNS: Temperature 97.9 Fahrenheit, 87 pulse, 20 respirations, 99% oxygen , and 166/90 blood pressure. HEENT: Conjunctivae pink and moist. PERRLA. EOMs intact. No partial gaze palsy. Oropharynx is clear. Mucous membranes are slightly dry. NECK: Supple. RESPIRATORY: Lung sounds clear throughout bilaterally on room air. No accessory muscle use noted. CARDIAC: S1, S2 present. Heart rate regular, though tachycardic. No murmurs, gallops, or rubs appreciated. ABDOMEN: Soft, nontender and nondistended with hypoactive bowel sounds x4. MUSCULOSKELETAL: Slight shortening of the right leg with no internal or external rotation. 2+ positive pedal pulses. 1+ pitting edema to bilateral lower extremities. Cap refill less than 3 seconds. NEUROLOGIC: Sensation is intact to light touch, though slightly decreased in bilateral toes. No other focal deficits appreciated. PSYCH: He is alert and oriented x4. Thought content organized. PERTINENT LABORATORY DATA: WBCs 11.0. INR 3.07. BUN 34, BUN/creatinine ratio 40.0. Alkaline phosphatase 119. Troponin 0.04. DIAGNOSTIC STUDIES: Brain CT showed generalized atrophy and chronic ischemic changes, no acute intracranial processes, no intracranial hemorrhage. Right knee x-ray is awaiting official radiologic read, does not appear to be any obvious fracture. Hip/pelvis x-ray is also awaiting official radiologic read, however, there is a prominent comminuted fracture of the right intertrochanter. ASSESSMENT AND PLAN: My impression is that this is a 79-year-old male with a past medical history significant for hypertension, Parkinson, and atrial fibrillation who is being admitted on 07/30/19 for right intertrochanteric fracture. 1. Right intertrochanteric fracture. In the emergency room, Dr. Vann was consulted by MARY Morel, and will see the patient tomorrow. However, the patient is on warfarin for his atrial fibrillation with an INR of over 3. It is unlikely that he will be ready to go to surgery tomorrow, so therefore he will be allowed to have a regular diet, however, he is to be bedrest, non- weightbearing to the right lower extremity. His pain control will be managed with cyclobenzaprine, Percocet, and morphine. His RCRI score is 0 which is equivalent to 3.9% risk of myocardial infarction, , or cardiac arrest. His NSQIP surgical risk calculator reveals a serious complication risk of 25.2% which is above average, a 30.1% chance of any complication and a 3.5% chance of cardiac complication, all of which are above average. I would recommended getting an echocardiogram prior to his surgery. 2. Atrial fibrillation. The patient typically takes metoprolol and warfarin at home. We will hold his warfarin in anticipation of surgery, however, he can continue his metoprolol tartrate. When he was in the emergency room, it was noted that he came in with atrial fibrillation with RVR with heart rate in the 120s and 130s and he received 10 mg of diltiazem which brought his heart rate down into the 80s. He will be admitted to [address] [place], [place] [address]etry morning. 3. Parkinson's. It is likely due to the history of having Parkinson's that he will require subacute rehab upon discharge after surgery, recommend PT and OT. He may continue his Sinemet 2 tabs b.i.d. 4. Gastroesophageal reflux disease. He can continue his omeprazole. 5. BPH. Continue tamsulosin. 6. Hypertension. The patient typically takes lisinopril 2.5 mg p.o. daily. He arrives to the emergency room hypertensive with blood pressures as high as 194/129, however, I do not trust this reading as he tremored significantly in bilateral upper extremities and this was not a manual reading. 7. DVT prophylaxis. I will hold his warfarin as we are trying to decrease his PT and INR. 8. Code status. DNR, however, pending a further conversation with his family in the morning. TIME SPENT: Time spent on the patient is about 60 minutes with 30 of that spent [id number]. CONDITION: Guarded. DISPOSITION: To admit inpatient to [address] [place] [address]. [id number]/[facility] #: [id number] ANTHONY
[2019-07-30 05:21] LABS: INR 3.43 (0.82-1.09)
[2019-07-30] MEDS: Morphine INJ* 2 MG/ML 1 ML SYRINGE (TWO MG - NEW SYRINGE VERSION) IV PRN ×2 (06:05→14:06)
--- NOTE | 2019-07-30 08:57 | ECHO ---
*[facility]* [place] [address] Fax #: [phone] Transthoracic Echocardiogram Patient: Priyank Lee : 1940 Study Date: 07/30/2019 Age: 79 Gender: M HR: 85 bpm Height: 71 in /180.3 cm BSA: 1.84 m^2 Weight: 144.7 lb /65.8 kg BMI: 20.2 kg/m^2 *Biology Specimen Technician: * Nohemy Mccoy [facility] *Referring Physician: * Zuly Newsome *Reading Physician: * Stone Beasley MD Indications: Abnormal EKG. Atrial Fibrillation. History: Atrial fibrillation. Risk factors: Hypertension. Parkinson's Disease. Conclusions Summary: - Left ventricle: Systolic function is normal. The estimated ejection fraction is 55-60%. Wall motion is normal; there are no regional wall motion abnormalities. - Right ventricle: Systolic function is normal. Systolic pressure is at the upper limits of normal. - Mitral valve: There is trace to mild regurgitation. - Aortic valve: There is no evidence of stenosis. - Tricuspid valve: There is mild regurgitation. - Pulmonary arteries: Systolic pressure is at the upper limits of normal. - Impressions: The study is unchanged since the study of 12/31/2010. Study data: Transthoracic echocardiogram. Procedure: Transthoracic echocardiography was performed. Image quality was fair. The study was technically limited due to poor acoustic window availability. Complete 2D, spectral Doppler, and color flow Doppler. Location: Bedside. Patient status: Inpatient. Patient room number: 447-02. Comparison is made to the study of 12/31/2010. Rhythm: Atrial fibrillation. Findings Left ventricle: The cavity size is normal. Wall thickness is mildly increased. Systolic function is normal. The estimated ejection fraction is 55-60%. Wall motion is normal; there are no regional wall motion abnormalities. Left ventricular diastolic function parameters are indeterminate. Right ventricle: The cavity size is mildly dilated. Systolic function is normal. Systolic pressure is at the upper limits of normal. Left atrium: The atrium is moderately to severely dilated. Right atrium: The atrium is moderately to severely dilated. Mitral valve: The Mitral valve annulus appears mildly calcified. There is no evidence of stenosis. There is trace to mild regurgitation. Aortic valve: The valve is trileaflet. The leaflets are mildly thickened. Thickening, consistent with sclerosis. There is no evidence of stenosis. There is trace regurgitation. Tricuspid valve: The leaflets are normal thickness. There is no evidence of stenosis. There is mild regurgitation. Pulmonic valve: The leaflets are normal thickness. There is no evidence of stenosis. There is trace regurgitation. Aorta: Aortic root: The aortic root is mildly dilated. Ascending aorta: The ascending aorta is mildly dilated. Aortic arch: The aortic arch is poorly visualized but, appears normal in size. Pericardium: There is no significant pericardial effusion. Pulmonary arteries: The main pulmonary artery is normal-sized. Systolic pressure is at the upper limits of normal. Systemic veins: Inferior vena cava: The vessel is dilated. There is (>= 50%) respiratory change in the IVC dimension. Measurements Left ventricle Value Ref Aortic valve Value Ref KAMINI, LAX 4.6 cm 4.2 - 5.8 Go diam, ED 1.9 cm ----- ESD, LAX 3.5 cm 2.5 - 4.0 Peak v, S 0.85 m/sec ----- FS, LAX (L) 24 % 25 - 43 VTI, S 13.0 cm ----- PW, ED, LAX 1.0 cm 0.6 - 1.0 Mean grad, S 1.0 mm Hg ----- FS (L) 24 % 25 - 43 Peak grad, S 3.0 mm Hg ----- Mid-wall FS 11 % LVOT/AV, VTI ratio 0.77 ----- PW, ED 1.0 cm 0.6 - 1.0 ANA, VTI 2.42 cm^2 ----- E', lat go, TDI 13.1 cm/sec >=10.0 ANA, Vmax 2.30 cm^2 --- -- E/e', lat go, 8 TDI Mitral valve Value Ref E', med go, TDI 10.5 cm/sec >=7.0 Peak E 1.03 m/sec --- -- E/e', med go, 10 Decel time 153 ms ----- TDI Peak grad, D 4.2 mm Hg ----- E', avg, TDI 11.8 cm/sec E/e', avg, TDI 9 <=14 Pulmonic valve Value Ref Peak v, S 0.73 m/sec ----- LVOT Value Ref Peak grad, S 2.0 mm Hg ----- Diam, S 2.00 cm Area 3.1 cm^2 Tricuspid valve Value Ref Peak neda, S 0.62 m/sec TR peak v 2.61 m/sec <=2.8 VTI, S 10.0 cm Peak RV-RA grad, S 27 mm Hg ----- Peak grad, S 2 mm Hg Mean grad, S 1 mm Hg Aortic root Value Ref SV 31 ml Root diam 3.8 cm <4.0 SV/bsa 17 ml/m^2 Ascending aorta Value Ref Ventricular septum Value Ref AAo AP diam, S 3.6 cm ----- IVS, ED (H) 1.1 cm 0.6 - 1.0 Aortic arch Value Ref Right ventricle Value Ref Arch diam 2.1 cm ----- KAMINI, LAX 3.3 cm KAMINI minor ax, A4C (H) 3.7 cm 1.9 - 3.5 Decending aorta Value Ref mid Duncan peak neda 0.48 m/sec ----- Pressure, S 35 mm Hg Pulmonary artery Value Ref Left atrium Value Ref Pressure, S 33.0 mm Hg ----- AP dim, ES (H) 4.80 cm 3.00 - 4.00 Inferior vena cava Value Ref ML dim, A4C 4.7 cm Diam 2.4 cm ----- SI dim, A4C 5.9 cm Vol/bsa, ES, 1-p (H) 43 ml/m^2 12 - 37 A4C Vol/bsa, ES, A/L (H) 48 ml/m^2 16 - 34 Right atrium Value Ref SI dim, ES (H) 6.3 cm 3.4 - 5.3 ML dim, ES, A4C (H) 4.9 cm 2.6 - 4.4 Estimated RAP 8 mm Hg Legend: (L) and (H) hyacinth values outside specified reference range. Prepared and electronically signed by Stone Beasley MD 07/30/2019 08:56
[2019-07-30 09:05] LABS: Creatine Kinase 153 U/L (10-223)
[2019-07-30 09:05] LABS: Creatine Kinase 266 U/L (10-223)
[2019-07-30 09:08] LABS: Creatine Kinase 35 U/L (10-223)
[2019-07-30 09:12] LABS: CKMB ng/mL 61.7 ng/mL (0.6-6.3)
[2019-07-30 09:12] LABS: CKMB ng/mL 35.5 ng/mL (0.6-6.3)
[2019-07-30 09:14] LABS: CKMB ng/mL 3.4 ng/mL (0.6-6.3)
[2019-07-30] MEDS: Pantoprazole TAB * 40 MG TAB PO SCH (09:15)
[2019-07-30] MEDS: Aspirin EC TAB* 81 MG TAB.EC PO SCH (09:15)
[2019-07-30] MEDS: Polyethylene Glycol 3350* 17 GM PACKET PO SCH (09:15)
[2019-07-30] MEDS: Carbidopa/Levodop 25/100 MG TAB(*) PO SCH ×2 (09:15→20:57)
[2019-07-30] MEDS: Lisinopril TAB* 5 MG PO SCH ×2 (09:16→09:21)
[2019-07-30] MEDS: Tamsulosin CAP* 0.4 MG PO SCH (09:16)
[2019-07-30] MEDS: Metoprolol Tartrate TAB* 25 MG PO SCH ×2 (09:16→20:57)
[2019-07-30 09:42] LABS: Creatine Kinase 369 U/L (10-223)
[2019-07-30 09:48] LABS: CKMB ng/mL 74.8 ng/mL (0.6-6.3)
[2019-07-30 09:49] LABS: Troponin I 12.53 ng/mL (<0.03)
[2019-07-30 09:51] LABS: Urine Appearance Clear; Urine Bilirubin Negative (Negative); Urine Blood Negative (Negative); Urine Color Yellow; Urine Glucose Negative (Negative); Urine Ketones Trace (Negative); Urine Nitrite Negative (Negative); Urine Protein Negative (Negative); Urine Specific Gravity 1.023 (1.010-1.030); Urine Urobilinogen Positive (Negative)
--- NOTE | 2019-07-30 10:39 | CONS ---
CONSULTATION REPORT: DATE OF CONSULT: 07/30/19 ATTENDING PHYSICIAN: Dr. Stone Beasley* (dictated by Temitope Kamara NP). PRIMARY ASSISTANT FACILITY MANAGER: Historically, Dr. Stone Beasley. PRIMARY NEUROLOGIST: Dr. Lowe. PRIMARY PHYSICIAN: None. REASON FOR CONSULTATION: Type 2 FL. CHIEF COMPLAINT: Status post mechanical fall. 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 The patient states he has been in his usual state of health. Denies any history of infection, recent hospitalization, weight gain, chest pain, shortness of breath, dizziness, or syncope. He states a couple of weeks ago, he suffered a mechanical fall while walking with his walker, he tripped on his rug. The patient states he lightly hit his head at that time. Denies loss of consciousness. Denies bleeding events. Yesterday evening around 9 p.m., he was not using his walker; however, he did fall on the same rug. He hit his head on the ground and he also hit is right knee and right hip. The patient denies any prodromal symptoms. He states he "tripped over the rug." He presented to [facility]. While being evaluated in the emergency department, blood pressure was 165/111, oxygenation 100% on room air, respirations 16, pulse 100, temperature was 97.9. His initial ECG revealed AFib , rate 120 with isolated PVCs. He had anterolateral ST segment depression at most 1.5 mm that normalized once ventricular rate went to 103 beats per minute on serial ECG. Brain CT was negative for acute process. Hip x-ray revealed a displaced right subcapital hip fracture. He had troponin checked, which was elevated at 0.04. It was trended. Most recent troponin at 0500 was 6. He was given 5 mg of vitamin K at 0130 and admitted to [address] [place] [address] for status post fall, right hip fracture, and rule out ACS. We are asked to see the patient in consultation for surgical risk stratification. The patient denies any history of chest pain, shortness of breath, dizziness, syncope, palpitations, sensation of heart racing. Again, he states he has otherwise been in his usual state of health. Last ischemic eval was in 2010 via Lexiscan nuclear stress test. Per report, TID was 0.92. EF 61% with normal perfusion.. Last echocardiogram was in 2010. Per report, LVEF 50% to 55% with biatrial enlargement, [id number] tricuspid insufficiency, ascending aorta was 3.6 cm. PAST MEDICAL HISTORY: 1. Parkinson disorder. 2. Permanent AFib. 3. Long-term use of anticoagulation. 4. GERD 5. Orthostatic hypotension. 6. Tricuspid insufficiency. 7. 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 8. Hypertension. PAST SURGICAL HISTORY: Torticollis surgery at age 11. ALLERGIES: No known drug allergies. FAMILY HISTORY: Noncontributory. SOCIAL HISTORY: The patient is retired, , lives at home with his and 2 children. He denies alcohol use, drug use. He ambulates occasionally with cane and walker. He had fallen twice in the past 2 months. REVIEW OF SYSTEMS: All systems have been reviewed and otherwise negative except as above mentioned in HPI. PHYSICAL EXAM: Temperature 98.9, pulse 104, respirations 24, oxygenation 98% on room air, blood pressure 104/50. General: The patient is lying in bed, no apparent distress, A and O x3, cooperative with the examination. Has resting tremors noted. HEENT: Head is atraumatic, normocephalic. Oral mucosa is moist. Tongue is midline. Neck: Supple. Trachea midline. No JVD. No carotid bruits. Cardiac: Normal S1, S2. Irregular rate and rhythm. No murmur , rub, or gallop noted. Lungs: Auscultated anteriorly. No evidence of adventitious breath sounds. /GI: Abdomen is soft, nontender, nondistended. Extremities: 1+ pretibial edema noted bilaterally. The patient states this is at his baseline. DIAGNOSTIC STUDIES/LAB DATA: Blood work from 07/29/19, reviewed; sodium 141, potassium 4.8, creatinine 0.85, alk phos 119. Troponin #1, 0.04. Troponin #2, 1.6. Troponin #3 is 6. BNP 161. TSH 2.80. INR 07/30/19 at 0500 was 3.43. White count 11, hemoglobin 14.1, hematocrit 42, platelets 213. ECG 07/29/19 at 2306; AFib, rate 120 beats per minute with isolated PVC, at most 1.[address]-segment depression that normalized on ECG afterwards. Echocardiogram; per report LVEF 55% to 60%, normal wall motion, [id number] mitral insufficiency. No aortic stenosis. Mild tricuspid insufficiency. Aortic root is 3.8 cm. ASSESSMENT AND PLAN: 1. Non-ST segment elevation myocardial infarction; likely type 2 infarct given the patient is status post mechanical fall resulting in right hip fracture with elevated ventricular rate, ST-segment depression normalized with improvement of ventricular rate. Denies any history of chest pain, shortness of breath, dizziness, or syncope. Risk factors include hypertension and age. He had a prior low risk Lexiscan nuclear stress test in 2010. The patient will need surgical risk stratification to undergo hip replacement. The patient was given 5 mg of vitamin K at 0130 on 07/30/19. We will wait for INR to drift down to less than 1.7 and proceed with left heart catheterization. We will likely need to do femoral access given resting tremor noted involving bilateral upper extremities. I personally reviewed indication, risk, and benefits of the procedure, which include but are not limited to bleeding, infection, risk of vessel damage, risk of contrast-induced nephropathy, possibility of dual antiplatelet therapy, referral for bypass surgery. The patient is agreeable to proceeding. Consent will be obtained by the marketing communications manager who will be performing the procedure. Continue aspirin 81 mg a day. Continue to trend isoenzymes until they peak and trend down. We will trend INR. 2. Status post mechanical fall resulting in right subcapital displaced hip fracture. Defer to primary team and Ortho. 3. History of permanent atrial fibrillation. Historically on Coumadin with a goal INR 2 to 3 and metoprolol therapy. Coumadin is on hold due to above #1. He is given 5 mg of vitamin K. Once INR is less than 2, please start IV heparin. Continue metoprolol therapy. Given this is the second mechanical fall in the last 2 months for the patient, I discussed with him that going forward if he continues to fall, we may need to discontinue anticoagulation given the risks versus benefits. 4. Disposition, pending course. Although the patient is listed as DNR, he states that he would desire a trial of intubation and CPR. We will defer to primary team. Please note Dr. Stone Beasley has personally has seen and examined the patient and agrees with the above assessment and plan. Thank you for this kind consultation. Any future questions or concerns, please do not hesitate to contact our practice. TEMITOPE KAMARA NP [id number]/[facility] #: [id number] ANTHONY
[2019-07-30 11:07] LABS: Cholesterol 149 mg/dL; HDL Cholesterol 45.6 mg/dL; LDL Cholesterol 92 mg/dL; Triglycerides 58 mg/dL
--- NOTE | 2019-07-30 11:13 | PN ---
Subjective Date of Service: 07/30/19 Interval History: Patient evaluated in the morning. Without complaints and overall feeling comfortable. He denies chest pain/discomfort/tightness, SOB, hip pain, fever/ chills, abd pain, epigastric pain, n/v. He notes chronic lower extremity weakness that is unchanged. In the afternoon, approx 1400, patient notes 3/10 central chest pain to RN Melani. IV morphine helped so nitroglycerin not given. Objective Active Medications: Acetaminophen (Tylenol Tab*) 650 mg PO Q4H PRN PRN Reason: MILD PAIN or TEMP > 100.4 Aspirin (Aspirin Ec Tab*) 81 mg PO DAILY [facility] Last Admin: 07/30/19 09:15 Dose: 81 mg Atorvastatin Calcium (Lipitor*) 80 mg PO 2100 [facility] Carbidopa/Levodopa (Sinemet 25/100 Tab(*)) 2 tab PO BID [facility] Last Admin: 07/30/19 09:15 Dose: 2 tab Carboxymethylcellulose Sodium (Celluvisc 1% Opth*) 1 drop BOTH EYES QID PRN PRN Reason: DRY EYE Cyclobenzaprine HCl (Flexeril Tab*) 10 mg PO TID PRN PRN Reason: SPASMS Metoprolol Tartrate (Lopressor Tab*) 25 mg PO BID [facility] Last Admin: 07/30/19 09:16 Dose: 25 mg Morphine Sulfate (Morphine Inj (Syringe))*) 2 mg IV Q4H PRN PRN Reason: PAIN - SEVERE Last Admin: 07/30/19 06:05 Dose: 2 mg Ondansetron HCl (Zofran Inj*) 4 mg IV Q4H PRN PRN Reason: NAUSEA/VOMITING Oxycodone/Acetaminophen (Percocet 5/325 Tab*) 1 tab PO Q4H PRN PRN Reason: PAIN - MODERATE Oxycodone/Acetaminophen (Percocet 5/325 Tab*) 2 tab PO Q4H PRN PRN Reason: PAIN - SEVERE Pantoprazole Sodium (Protonix Tab*) 40 mg PO DAILY [facility] Last Admin: 07/30/19 09:15 Dose: 40 mg Polyethylene Glycol/Electrolytes (Miralax (17 Gm Dose [place])) 17 gm PO DAILY [facility] Last Admin: 07/30/19 09:15 Dose: 17 gm Tamsulosin HCl (Flomax Cap*) 0.4 mg PO DAILY [facility] Last Admin: 07/30/19 09:16 Dose: 0.4 mg Vital Signs - 8 hr 07/30/19 07/30/19 07/30/19 03:59 04:45 06:05 Temperature 99.5 F 98.9 F Pulse Rate 104 Respiratory 24 22 Rate Blood Pressure 104/50 (mmHg) O2 Sat by Pulse 98 Oximetry 07/30/19 07:07 Temperature Pulse Rate Respiratory 20 Rate Blood Pressure (mmHg) O2 Sat by Pulse Oximetry Oxygen Devices in Use Now: None Appearance: Thin, elderly white male, laying in bed, appearing comfortable and in NAD Eyes: No Scleral Icterus, - - PERRL Ears/Nose/Mouth/Throat: Mucous Membranes Moist Neck: NL Appearance and Movements; NL JVP, Trachea Midline Respiratory: Symmetrical Chest Expansion and Respiratory Effort, Clear to Auscultation Cardiovascular: NL Sounds; No Murmurs; No JVD, RRR Abdominal: - - abd soft, nontender, nondistended; no epigastric tenderness Extremities: No Edema, No Clubbing, Cyanosis, - - pedal pulse intact on right side Skin: No Rash or Ulcers Neurological: Alert and Oriented x 3 Result Diagrams: 07/29/19 23:23 07/29/19 23:23 Assess/Plan/Problems-Billing Assessment: 79 yo white male with PMHx Afib, Parkinson's, GERD, and BPH presents after a mechanical fall at home with right hip and knee pain. - Patient Problems (1) Closed right hip fracture Current Visit: Yes Status: Acute Code(s): S72.001A - FRACTURE OF UNSP PART OF NECK OF RIGHT FEMUR, INIT SNOMED Code(s): 820835518 Comment: -mechanical fall at home - patient describes tripping on carpeting -right displaced subcapital fracture on x-ray -ortho consulted, plan for operative tx, will be getting CT hip -not ready for surgery due to supratherapeutic INR and concern for ACS as described below -continue pain control, pain is tolerated at this time -bedrest (2) NSTEMI (non-ST elevated myocardial infarction) Current Visit: Yes Status: Acute Code(s): I21.4 - NON-ST ELEVATION (NSTEMI) MYOCARDIAL INFARCTION SNOMED Code(s): 66419874 Comment: -minimal troponin elevation initially thought to be ischemic demand related to rate -troponin has since continued to rise to 12.99 -appears to have ST depressions in septal leads -cardiology involved -plan for cath when INR<1.7; oral vitamin K has been given and will trend INR; NPO after midnight -TTE without wall motion abnormalities, EF 55-60% -continue aspirin, metoprolol -statin started by cardiology -asymptomatic most of day but later developed chest pain, EKG at this time unchanged from previous in the day (3) Atrial fibrillation with RVR Current Visit: Yes Status: Acute Code(s): I48.91 - UNSPECIFIED ATRIAL FIBRILLATION SNOMED Code(s): 695887770032128 Comment: -presented with RVR, rate in 140s -received one dose 10mg cardizem in ED, rate has since been stable -continue home metoprolol -on coumadin at home, holding for cath and hip surgery (4) BPH (benign prostatic hyperplasia) Current Visit: Yes Status: Acute Code(s): N40.0 - BENIGN PROSTATIC HYPERPLASIA WITHOUT LOWER URINRY TRACT SYMP SNOMED Code(s): 070426478 Comment: -continue tamsulosin (5) GERD (gastroesophageal reflux disease) Current Visit: Yes Status: Acute Code(s): K21.9 - GASTRO-ESOPHAGEAL REFLUX DISEASE WITHOUT ESOPHAGITIS SNOMED Code(s): 809330675 Comment: -continue protonix (6) Parkinson disease Current Visit: No Status: Acute Code(s): G20 - PARKINSON'S DISEASE SNOMED Code(s): 11664776 Comment: -Continue Levodopa/carbidopa (7) DVT prophylaxis Current Visit: Yes Status: Acute Code(s): Z29.9 - ENCOUNTER FOR PROPHYLACTIC MEASURES, UNSPECIFIED SNOMED Code(s): 792195574 Comment: -supratherauetic INR (8) Full code status Current Visit: Yes Status: Acute Code(s): Z78.9 - OTHER SPECIFIED HEALTH STATUS SNOMED Code(s): 311786065 Comment: -MOLST updated today Status and Disposition: inpatient pending improvement
--- NOTE | 2019-07-30 12:36 | CONSULT ---
Consult Consult: Date of service: 07/30/19 Orthopedic Consultation Attending Provider: Dr. Storm Vann Date of Consultation: 07/30/19 Date of Admission: 07/30/19 CC: Right hip pain HPI: Mr. Lee is a 79 year old male who presented to the ER on 07/29/19 with right hip pain and difficulty weight bearing after a fall at home. The patient has a history of Parkinsons and was walking without a walker when her tripped on a rug and fell onto his right hip and hit his head. He had immediate pain and difficulty weight bearing. He is on coumadin for atrial fibrillation. A CT of the head was performed in ER with no acute findings. Xrays of the hip and pelvis revealed a displaced femoral neck fracture. He has elevated troponins upon arrival and was admitted for medical management and further workup. No known history of heart attack, stroke, DVT, PE, blood transfusion, HIV or hepatitis. No history of adverse effects with anesthesia Allergies: NKDA Surgical History: torticollis surgery in 1950. Denies complications with anesthesia Past medical history: BPH, HTN, parkinsons, GERD, Atrial fibrillation, torticollis Family history: Positive for HTN and DM. No family history of adverse effects with anesthesia. Denies FHx of DVT/PE Social: Denies tobacco use or illegal drug use. Occasional alcohol consumption Home Meds:Carbidopa/Levodop 25/100 MG(*) [Sinemet 25/100 TAB(*)] 2 tab PO TID Carboxymethylcellulos 1% OPTH* [Celluvisc 1% OPTH*] 1 drop BOTH EYES QID PRN Lisinopril TAB* [Prinivil TAB 5 MG*] 2.5 mg PO DAILY Aspirin EC TAB* [Ecotrin EC Low Dose 81 MG*] 81 mg PO DAILY Cod Liver Oil 1 cap PO DAILY Omeprazole CAP (NF) [Prilosec CAP* 20 MG] 20 mg PO DAILY Polyethylene Glycol 3350* [Miralax (17 GM DOSE MARNIE)] 17 gm PO DAILY Tamsulosin CAP* [Flomax CAP*] 0.4 mg PO DAILY Warfarin TAB(*) [Coumadin TAB(*)] 5 mg PO .MOTUTHFRSA Warfarin TAB(*) [Coumadin TAB(*)] 7.5 mg PO .SUWE Metoprolol Tartrate TAB* [Lopressor TAB*] 25 mg 1 tab PO BID Review of Systems: General: Negative for Fever, Chills, recent illness HEENT: Positive for head trauma due to fall. Negative for acute change in vision , headache. Cardio: H/O a fib. No Chest Pain or history of IN Resp: No Shortness of Breath or Cough. No history of asthma, COPD or FAUSTO Abd: no Abdominal Pain, Vomiting, Diarrhea, Nausea : no dysuria MSK: positive for above complaints. Otherwise negative Neuro: Sensation intact throughout all extremities without numbness or parasthesias Heme: no history of blood clot, easy bleeding or easy bruising Skin: No rash or lesions. Physical Exam: Vitals: General: Well appearing, NAD, alert and oriented to person, place and time HEENT: NCAT. EOMi, moist mucus membranes Cardio: S1S2 RRR Resp: CTA BL. no wheezes, rales or rhonchi ABD: bowel sounds normoactive in all 4 quadrants. Nontender to palpation, no guarding or rigidity. MSK Upper Extremities: Skin intact, no obvious deformity, nontender to palpation. Active flexion and extension of digits, wrists, elbows without associated pain. Shoulders with nonpainful active forward flexion and abduction. MSK Lower Extremities: Skin intact, no obvious bryanna deformity, nontender to palpation. Active nonpainful flexion and extension of digits, ankle, and knee. Positive log roll at the right hip. No pain log roll of left hip. right leg shortened and externally rotated. No TTP of right knee or lower leg. calf soft NT b/l, NVI Neuro: Sensation intact to light touch throughout bilateral upper and lower extremities Vascular: Radial pulse 2+ bilaterally, DP pulse 2+ bilaterally. Capillary refill less than two seconds distally bilateral upper and lower extremities Psych: Appropriate affect. Skin: No rash or lesions. No open fractures. Diagnostic Studies: Xray of the right hip and pelvis reveal a displaced right hip femoral neck fracture INR: 3.43 troponin: 12.53 at 07/29 09:20 Assessment: Right hip displaced femoral neck fracture Plan: The patient will require surgical fixation of the right hip which will be a right hip hemiarthroplasty. However the patient has elevated troponins and an elevated INR. Cardiology has held coumadin and given the patient vitamin K and performed an echocardiogram. When the patients INR has dropped below 2, a cardiac cath will be performed. After the patient has been cleared by cardiology and the INR has decreased, Dr. Alexis will perform a right hip hemiarthroplasty later this week. The need for preop clearance, the procedure and post op recovery was discussed with the patient and the patient's son over the phone. They have agreed to the above plan and their questions were answered. The patient will be bedrest activity with as needed pain control until he is able to have surgery.
[2019-07-30] MEDS ORDERED: Nitroglycerin TAB 0.4 MG* 0.4 MG TAB SL PRN (14:04)
[2019-07-30 14:47] LABS: Troponin I 12.99 ng/mL (<0.03)
[2019-07-30 19:56] LABS: INR 2.51 (0.82-1.09)
[2019-07-30] MEDS: Atorvastatin* 80 MG TAB PO SCH (20:57)
[2019-07-30] MEDS ORDERED: Nitro Patch/OINT Remove PATCH OFF SCH (21:00)
[2019-07-30] MEDS ORDERED: NS 0.9% 1000 ML** 1,000 ML IV SCH (23:55)
[2019-07-31] MEDS: Morphine INJ* 2 MG/ML 1 ML SYRINGE (TWO MG - NEW SYRINGE VERSION) IV PRN (04:23)
[2019-07-31] MEDS ORDERED: Diltiazem IV push/loading dose 5 MG/ML 5 ML vial (25 mg) IV SLOW PU ONE (05:15)
[2019-07-31 07:27] LABS: BUN/Creatinine Ratio 39.2 (8-20); Calcium 8.8 mg/dL (8.6-10.3); EGFR African American 124.1 (>60); EGFR Non-African American 102.6 (>60); Potassium 4.1 mmol/L (3.5-5.0)
[2019-07-31 07:45] LABS: ABS Eosinophils 0.1 10^3/ul (0-0.6); ABS Lymphocytes 0.6 10^3/ul (1.0-4.8); ABS Monocytes 1.2 10^3/ul (0-0.8); ABS Neutrophils 7.4 10^3/ul (1.5-7.7); Eosinophil % 1.4 %; Hematocrit 41 % (42-52); Hemoglobin 14.1 g/dL (14.0-18.0); Lymphocyte % 6.4 %; Mean Corpuscular HGB Conc 34 g/dL (31-36); Mean Corpuscular Hemoglobin 32 pg (27-31); Mean Corpuscular Volume 93 fL (80-94); Mean Platelet Volume 8.8 fL (7.4-10.4); Platelet Count 204 10^3/uL (150-450); Red Blood Count 4.44 10^6 /uL (4.18-5.48); Red Cell Distribution Width 14 % (10-15); White Blood Count 9.3 10^3/uL (3.5-10.8)
[2019-07-31 07:56] LABS: INR 1.89 (0.82-1.09)
[2019-07-31] MEDS: Aspirin EC TAB* 81 MG TAB.EC PO SCH (07:59)
[2019-07-31] MEDS ORDERED: diPHENhydraMINE PO* 25 MG PO PRN (08:00)
[2019-07-31] MEDS: Metoprolol Tartrate TAB* 25 MG PO SCH ×2 (08:00→21:12)
[2019-07-31] MEDS: Pantoprazole TAB * 40 MG TAB PO SCH (08:00)
[2019-07-31] MEDS: Tamsulosin CAP* 0.4 MG PO SCH (08:00)
[2019-07-31] MEDS ORDERED: Diazepam TAB(*) 5 MG PO PRN (08:00)
[2019-07-31] MEDS: Carbidopa/Levodop 25/100 MG TAB(*) PO SCH ×2 (08:00→21:12)
[2019-07-31] MEDS: Polyethylene Glycol 3350* 17 GM PACKET PO SCH (08:01)
[2019-07-31] MEDS ORDERED: Nitroglycerin 0.4 MG/HR PATCH* (10 MG) TRANSDERM SCH (09:00)
--- NOTE | 2019-07-31 09:30 | PN ---
Progress Note - Progress Note Date of Service: 07/31/19 SOAP: Subjective: [Pt is a 79 y/o male. Seen today laying in bed. Denies any chest pain or SOB. Denies any nausea or vomiting. The pt is awaiting a cardiac cath.] Objective: General: pt is alert and oriented x3, NAD. MSK Lower Extremities: Skin intact, no obvious bryanna deformity, nontender to palpation. Active nonpainful flexion and extension of digits, ankle, and knee. Positive log roll at the right hip. No pain log roll of left hip. right leg shortened and externally rotated. No TTP of right knee or lower leg. calf soft NT b/l, NVI . Vital Signs Temp 98.9 F 07/31/19 07:15 Pulse 97 07/31/19 07:15 Resp 20 07/31/19 07:15 BP 152/78 07/31/19 07:45 Pulse Ox 99 07/31/19 07:15 Intake & Output 07/30/19 07/31/19 07/31/19 18:59 06:59 18:59 Intake Total 120 0 Output Total 300 575 Balance -180 -575 Intake: Oral 120 0 Output: Urine 575 Vtiale 300 Assessment: Right hip displaced femoral neck fracture Plan: [Continue with current pain medication The pt will have a cardiac cauterization today To the OR tomorrow should he be cleared by hospitalists and cadio for a right hip hemiarthroplasty NPO after midnight tonight. ]
[2019-07-31 13:06] LABS: INR 1.79 (0.82-1.09)
[2019-07-31] MEDS ORDERED: Diazepam TAB(*) 5 MG ONE (14:08)
[2019-07-31] MEDS ORDERED: fentaNYL* 50 MCG/ML 2 ML VIAL (100 MCG VIAL) ONE (14:20)
[2019-07-31] MEDS ORDERED: nitroGLYCERIN DRIP* 25,000 MCG/250 ML BTL ONE (14:21)
[2019-07-31] MEDS ORDERED: VERAPAMIL 2.5 MG/ML 2 ML VIAL ** 5 mg/2 ml ONE (14:21)
[2019-07-31] MEDS ORDERED: Heparin(*) 1000 UNIT/ML 10 ML VIAL CATH LAB IV ONE (14:21)
[2019-07-31] MEDS ORDERED: Heparin 2 UNITS/ML IVPREMIX* 2,000 ML IV ONE (14:21)
[2019-07-31] MEDS ORDERED: Lidocaine 1% INJ* 10 MG/ML 30 ML SDV ONE (14:21)
[2019-07-31] MEDS ORDERED: Iohexol 350 (CONTRAST) 200 ML MDV IV ONE (14:21)
[2019-07-31] MEDS ORDERED: Midazolam* 1 MG/ML 5 ML VIAL (5 MG) ONE (14:21)
--- NOTE | 2019-07-31 16:28 | CATH ---
DATE OF PROCEDURE: 07/31/2019. PROCEDURE PERFORMED: Cardiac catheterization, coronary angiography. INDICATION: NSTEMI, hip fracture. HISTORY: The patient is a 79-year-old gentleman with a history of paroxysmal atrial fibrillation who came to the hospital with a mechanical fall at home resulting in a right hip fracture. When he came to the hospital, he was in rapid atrial fibrillation. His troponin elevated to 6 on arrival and the n a maximum troponin of 12. His echocardiogram showed normal LV size and systolic function. Cardiac catheterization was recommended. PROCEDURE: The patient came to the procedure room in a fasting state. Informed consent had been obt ained prior to the procedure. All labs have been reviewed. The patient was placed supine on the cath eterization table. His right atrial area was prepped and draped in the usual fashion. One percent L idocaine was used for local anesthesia. The radial artery was entered via Seldinger technique and a 6 Maori hydrophilic sheath was placed. The patient underwent coronary angiography using a 6 Maori TIG catheter. After the insertion of the radial sheath, the patient had an infusion of IV Heparin, V erapamil, and nitroglycerin. Multiple images were obtained. At the end of the procedure, all the sh eaths and catheters were removed. The patient tolerated the procedure well. There were no complicat ions. A total of 65 cc of Omnipaque dye was used. A total of 2.7 minutes of fluoro time was used. FINDINGS: Hemodynamic central aortic blood pressure 102/60 with a mean of 79. Left main artery: The left main was normal in size. It bifurcated into the LAD and circumflex. The re was no evidence of stenosis. There was mild calcification of the left main artery. LAD: The LAD had an initial aneurysmal formation of the proximal portion with mild calcification. T he LAD gave off two diagonal vessels. The proximal LAD had mild disease. The mid LAD had a mild ane urysmal formation and then just distal to that had a 95 percent stenosis. The remainder of the LAD w as without disease. The first diagonal vessel had a proximal 90 percent stenosis. The first diagona l vessel is a 2 mm vessel. Left circumflex artery: The circumflex artery was normal in size. It gave off three obtuse marginal branches. The circumflex itself is subtotally occluded after OM2. The first OM had a proximal 95 p ercent stenosis. The OM1 is a 2.5 mm vessel. OM2 is without disease. OM3 is totally occluded with r ight to left collaterals from the distal right coronary artery. OM3 is a 2 mm vessel. Right coronary artery: The RCA was normal in size. It had mild to moderate diffuse coronary artery disease. No critical stenosis of the right coronary artery, PDA or posterolateral branch. Again, th e PDA itself gave off collateral branches to the OM3. IMPRESSION: 1. Critical stenosis of the mid LAD. 2. Critical stenosis of first diagonal vessel off the LAD. It is a 2 mm vessel. 3. Critical stenosis to OM1 off the left circumflex artery. 4. Occluded OM3 with left to right collaterals. RECOMMENDATIONS: The patient will be evaluated for revascularization prior to hip surgery, whether t hat includes multiple stenting to the LAD and OM1 vessel or coronary artery bypass surgery will be ev aluated by tertiary care facility. [id number]/[facility] #: [id number]
[2019-07-31] MEDS ORDERED: Heparin DRIP 25,000 UNITS(*) 25,000 UNITS/500 ML BAG IV SCH (18:15)
[2019-07-31] MEDS ORDERED: Heparin VIAL(*) 5000 UNITS/ML VIAL (FIVE THOUSAND) IV PRN (18:24)
[2019-07-31] MEDS ORDERED: Lorazepam PYXIS KEY PRN (18:53)
[2019-07-31 19:00] LABS: ABS Eosinophils 0.2 10^3/ul (0-0.6); ABS Lymphocytes 0.6 10^3/ul (1.0-4.8); ABS Monocytes 0.7 10^3/ul (0-0.8); ABS Neutrophils 4.8 10^3/ul (1.5-7.7); Eosinophil % 3.1 %; Hematocrit 42 % (42-52); Hemoglobin 14.2 g/dL (14.0-18.0); Lymphocyte % 9.8 %; Mean Corpuscular HGB Conc 34 g/dL (31-36); Mean Corpuscular Hemoglobin 32 pg (27-31); Mean Corpuscular Volume 94 fL (80-94); Mean Platelet Volume 8.9 fL (7.4-10.4); Platelet Count 187 10^3/uL (150-450); Red Blood Count 4.45 10^6 /uL (4.18-5.48); Red Cell Distribution Width 14 % (10-15); White Blood Count 6.4 10^3/uL (3.5-10.8)
[2019-07-31] MEDS: LORazepam INJ* 2 MG/ML 1 ML VIAL IV PUSH PRN (19:06)
[2019-07-31 19:15] LABS: EGFR African American 126.1 (>60); EGFR Non-African American 104.2 (>60)
[2019-07-31] MEDS: Atorvastatin* 80 MG TAB PO SCH (21:12)
--- NOTE | 2019-07-31 21:25 | TRS ---
CC: Dr. Jerry Olmos; Dr. Beasley* TRANSFER SUMMARY: DATE OF ADMISSION: 07/30/19 DATE OF ANTICIPATED TRANSFER: 08/01/19 (this transfer summary was dictated in advance in anticipation of early transfer in the morning, dictated on 07/31/19). PRIMARY CARE PROVIDER: Jerry Olmos MD ATTENDING PHYSICIAN WHILE IN THE HOSPITAL: Dr. Darien Watson* (dictated by MARY Padron). PRIMARY DIAGNOSES: 1. [id number] myocardial infarction, catheterization demonstrating critical stenosis of 2 vessels. 2. Right subcapital hip fracture. SECONDARY DIAGNOSES: 1. Parkinson's. 2. Chronic atrial fibrillation, on Coumadin. 3. Torticollis. 4. Gastroesophageal reflux disease. 5. Hypertension. 6. Benign prostatic hypertrophy. PERTINENT STUDIES WHILE IN THE HOSPITAL: 1. Brain CT on 07/29/19, impression: Generalized atrophy and chronic ischemic changes. No acute intracranial process. No intracranial hemorrhage. 2. Transthoracic echocardiogram on 07/30/19. Please see full report for details, but briefly conclusions are EF of 55% to 60%, wall motion is normal, there are no regional wall motion abnormalities, there is mild tricuspid regurgitation and mild mitral regurgitation. 3. Hip/pelvis x-ray on 07/29/19, impression: Osteopenia with displaced right subcapital hip fracture. 4. Right knee x-ray on 07/29/19, impression: No displaced fracture. 5. Pelvis CT, impression: A. Right subcapital hip fracture with exaggerated lateral apex angulation. B. Osteopenia. C. Mild bilateral hip osteoporosis arthropathy. D. Vascular calcifications. 6. Cardiac catheterization on 07/31/19, performed by Dr. Stone Beasley. Conclusions include critical stenosis of the mid LAD, critical stenosis of the first diagonal vessel off of the LAD, critical stenosis to OM1 off the left circumflex artery, occluded OM3 with left to right collaterals. Please see full report for further details. HOSPITAL COURSE: Mr. Priyank Lee is a 79-year-old white male with past medical history significant for hypertension, coronary artery disease, Parkinson disease, BPH, and chronic atrial fibrillation, on Coumadin, who presented to the emergency department due to a described mechanical fall by tripping in his living room with resulting right hip and knee pain. The patient was found to have right- sided subcapital hip fracture. He was seen in consultation by the orthopedic team, who determined that this patient would require hemiarthroplasty for surgical fixation of this hip. However, due to his cardiac status, this has not yet occurred. The patient has been having good pain control with oral oxycodone and morphine overall and thus far has not yet been medically optimized for surgery due to his cardiac events. When the patient arrived to the hospital, he initially had a minimally elevated troponin and he has no cardiac complaints. Later, he was found to have an NSTEMI as his troponin quickly stone to 12.99, as the peak. During this time, he did not develop ST elevations. He did develop chest pain on 07/30/19 in the afternoon, which resolved with morphine and he was not symptomatic prior to that nor on today's date. Since then, his troponin has downtrended to 8.00 which was collected on 07/30/19 at 1945 hours. Due to the patient's supratherapeutic INR of 3.43, cardiac catheterization need to wait until today' s date. The patient received oral vitamin K for reversal and his INR fell this afternoon to 1.[address] Beasley took him for cardiac catheterization. As described in the brief summary of the report above, the patient was found to have critical stenosis of 2 vessels. The patient was found to have normal LV function on catheterization. Due to these findings, Dr. Beasley felt that the patient would need to be transferred to a tertiary care center as he would likely require complex stenting or 2-vessel CABG. Dr. Beasley arranged transfer to [facility] with accepting physician, Dr. Bautista of Cardiothoracic Surgery. The patient's son, Yair Lee, is his healthcare proxy and consented for transport as the patient was quite sedated after cardiac catheterization. The plan is for the patient to leave [facility] via [facility] ambulance on the morning of 08/01/19 at 6 a.m. He will arrive to [facility] where he will be admitted to Dr. Bautista's service. The patient is currently on heparin and he will be having continuous heparin and p.r.n. morphine in the ambulance. I anticipated oxygen would be beneficial to continue for treatment of his myocardial infarction and morphine would be helpful to treat his hip pain as well in the ambulance. ACTIVE MEDICATIONS: At time of this dictation (please note that the heparin rate may change overnight): 1. Tylenol 650 mg p.o. q.4 hours p.r.n. pain. 2. Aspirin 81 mg p.o. daily. 3. Lipitor 80 mg p.o. daily. 4. Sinemet 25/100 two tabs p.o. b.i.d. 5. Carboxymethylcellulose 1 drop both eyes 4 times a day p.r.n. dry eyes. 6. Cyclobenzaprine 10 mg p.o. t.i.d. p.r.n. muscle spasms. 7. Heparin 25,000 units, current rate ordered at 800 units per hour. 8. Metoprolol tartrate 25 mg p.o. b.i.d. 9. Morphine sulfate 2 mg IV q.4 hours p.r.n. pain. 10. Nitroglycerin 0.4 mg sublingual q.5 minutes p.r.n. angina. 11. Zofran 4 mg IV q.4 hours p.r.n. nausea, vomiting. 12. Percocet 5/325 one to two tabs p.o. q.4 hours pain. 13. Pantoprazole 40 mg p.o. daily. 14. MiraLAX 17 g p.o. daily. 15. Normal saline 75 cc per hour. 16. Tamsulosin 0.4 mg p.o. daily. DISPOSITION: [facility]. ADMITTING PROVIDER: Dr. Bautista, Cardiothoracic Surgery. CONDITION: Fair. MARY PADRON [id number]/[facility] #: [id number] MTDD
[2019-08-01] MEDS: LORazepam INJ* 2 MG/ML 1 ML VIAL IV PUSH PRN ×2 (01:05→08:02)
[2019-08-01 06:39] LABS: ABS Eosinophils 0.3 10^3/ul (0-0.6); ABS Lymphocytes 0.5 10^3/ul (1.0-4.8); ABS Monocytes 0.9 10^3/ul (0-0.8); Eosinophil % 4.1 %; Hematocrit 39 % (42-52); Hemoglobin 13.4 g/dL (14.0-18.0); Lymphocyte % 7.3 %; Mean Corpuscular HGB Conc 34 g/dL (31-36); Mean Corpuscular Hemoglobin 32 pg (27-31); Mean Corpuscular Volume 93 fL (80-94); Mean Platelet Volume 8.9 fL (7.4-10.4); Platelet Count 186 10^3/uL (150-450); Red Blood Count 4.18 10^6 /uL (4.18-5.48); Red Cell Distribution Width 14 % (10-15); White Blood Count 6.7 10^3/uL (3.5-10.8)
[2019-08-01 06:47] LABS: BUN/Creatinine Ratio 42.9 (8-20); Calcium 8.3 mg/dL (8.6-10.3); EGFR African American 149.4 (>60); EGFR Non-African American 123.5 (>60); Potassium 3.8 mmol/L (3.5-5.0)
[2019-08-01] MEDS: Carbidopa/Levodop 25/100 MG TAB(*) PO SCH (08:11)
--- NOTE | 2019-08-01 08:17 | PN ---
Subjective Date of Service: 08/01/19 Interval History: Pt is seen just before departure for transfer today. He was agitated last night and received a dose of Ativan at 1 AM. Sleeping intermittently since then as per d/w pt's RN present by the bedside today in AM. Pt is sleeping, but able to arouse and and follow simple commands. Notable tremor in B/l UE's Objective Active Medications: Acetaminophen (Tylenol Tab*) 650 mg PO Q4H PRN PRN Reason: MILD PAIN or TEMP > 100.4 Last Admin: 07/31/19 04:23 Dose: 650 mg Aspirin (Aspirin Ec Tab*) 81 mg PO DAILY [facility] Last Admin: 07/31/19 07:59 Dose: 81 mg Atorvastatin Calcium (Lipitor*) 80 mg PO 2100 [facility] Last Admin: 07/31/19 21:12 Dose: 80 mg Carbidopa/Levodopa (Sinemet 25/100 Tab(*)) 2 tab PO BID [facility] Last Admin: 08/01/19 08:11 Dose: 2 tab Carboxymethylcellulose Sodium (Celluvisc 1% Opth*) 1 drop BOTH EYES QID PRN PRN Reason: DRY EYE Cyclobenzaprine HCl (Flexeril Tab*) 10 mg PO TID PRN PRN Reason: SPASMS Last Admin: 07/31/19 04:22 Dose: 10 mg Diphenhydramine HCl (Benadryl Po*) 25 mg PO ONCE PRN PRN Reason: 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 to Manager Floor Heparin Sodium (Porcine) (Heparin Vial(*)) 0 units IV .BOLUS PRN PRN Reason: HEPARIN DRIP PROTOCOL Heparin Sodium/Dextrose (Heparin Drip 25,000 Units(*)) 25,000 units in 500 mls @ 0 mls/hr IV PER RATE [facility]; Protocol Last Admin: 07/31/19 19:25 Dose: 16 mls/hr Lorazepam (Ativan Inj*) 1 mg IV PUSH Q6H PRN PRN Reason: anxiety/agitation Last Admin: 08/01/19 01:05 Dose: 1 mg Metoprolol Tartrate (Lopressor Tab*) 25 mg PO BID [facility] Last Admin: 07/31/19 21:12 Dose: 25 mg Miscellaneous (Ativan Pyxis Tsai) 1 ea N/A .ATIVAN IV TSAI PRN PRN Reason: PYXIS TSAI Morphine Sulfate (Morphine Inj (Syringe))*) 2 mg IV Q4H PRN PRN Reason: PAIN - SEVERE Last Admin: 07/31/19 04:23 Dose: 2 mg Nitroglycerin (Nitroglycerin Tab 0.4 Mg*) 0.4 mg SL Q5M PRN PRN Reason: ANGINA Ondansetron HCl (Zofran Inj*) 4 mg IV Q4H PRN PRN Reason: NAUSEA/VOMITING Oxycodone/Acetaminophen (Percocet 5/325 Tab*) 1 tab PO Q4H PRN PRN Reason: PAIN - MODERATE Oxycodone/Acetaminophen (Percocet 5/325 Tab*) 2 tab PO Q4H PRN PRN Reason: PAIN - SEVERE Pantoprazole Sodium (Protonix Tab*) 40 mg PO DAILY [facility] Last Admin: 07/31/19 08:00 Dose: 40 mg Polyethylene Glycol/Electrolytes (Miralax (17 Gm Dose [place])) 17 gm PO DAILY [facility] Last Admin: 07/31/19 08:01 Dose: 17 gm Tamsulosin HCl (Flomax Cap*) 0.4 mg PO DAILY [facility] Last Admin: 07/31/19 08:00 Dose: 0.4 mg Vital Signs - 8 hr 08/01/19 08/01/19 08/01/19 01:05 03:24 03:43 Temperature 99.6 F Pulse Rate 72 Respiratory 22 16 14 Rate Blood Pressure 149/74 (mmHg) O2 Sat by Pulse 96 Oximetry 08/01/19 06:52 Temperature 99.3 F Pulse Rate 69 Respiratory 16 Rate Blood Pressure 153/71 (mmHg) O2 Sat by Pulse 98 Oximetry Oxygen Devices in Use Now: None Appearance: 79 yo M, sleeping during eval , but able to wak up and follow simple commands before drifting off to sleep again Eyes: No Scleral Icterus, PERRLA Ears/Nose/Mouth/Throat: NL Teeth, Lips, Gums Neck: NL Appearance and Movements; NL JVP Respiratory: Symmetrical Chest Expansion and Respiratory Effort Cardiovascular: - - irregular Abdominal: NL Sounds; No Tenderness; No Distention, No Hepatosplenomegaly Lymphatic: No Cervical Adenopathy Extremities: No Edema, - - R radial cath site eval: good R radial pulse, small ecchymotic area noted, puncture site with minimal amount of bleeding-cleaned Neurological: - - notable for b/l UE's tremors and cogwheel rigidity, motor strenth difficult to eval due to pt's somnolence, but strenght symmetrical, face symmetrical, able to drink water with a straw during eval Result Diagrams: 08/01/19 06:23 08/01/19 06:23 Assess/Plan/Problems-Billing Assessment: 79 yo white male with PMHx Afib, Parkinson's, GERD, and BPH presents after a mechanical fall at home with right hip and knee pain. Now after a significant CAD found at cath on 07/31/19 pt is being transferred to a tertiary care center for further intervention
[2019-08-01 08:33] VITALS: BP 162/83
== END 2019-08-01 08:00 | disposition short-term general hospital (02) | DRG 280 ==
LOC: ED 22:02 → MEDTELE 07-30 00:31
PROVIDERS: ADMIT Internal Medicine; ATTEND Internal Medicine
PROC: B211YZZ Fluoroscopy of Multiple Coronary Arteries using Other Contrast (ICD-10-PCS; principal; 2019-07-31 11:30)
DX: I21.A1 Myocardial infarction type 2 (principal); S72.141A Displaced intertrochanteric fracture of right femur, initial encounter for closed fracture; I48.21 Permanent atrial fibrillation; S09.90XA Unspecified injury of head, initial encounter; W18.09XA Striking against other object with subsequent fall, initial encounter; G20 Parkinson's disease; I08.3 Combined rheumatic disorders of mitral, aortic and tricuspid valves; N40.0 Benign prostatic hyperplasia without lower urinary tract symptoms; I25.10 Atherosclerotic heart disease of native coronary artery without angina pectoris; Z66 Do not resuscitate; R79.1 Abnormal coagulation profile; I10 Essential (primary) hypertension; M25.561 Pain in right knee; M43.6 Torticollis; M81.0 Age-related osteoporosis without current pathological fracture; M85.861 Other specified disorders of bone density and structure, right lower leg; K21.9 Gastro-esophageal reflux disease without esophagitis; Y92.009 Unspecified place in unspecified non-institutional (private) residence as the place of occurrence of the external cause; Z91.81 History of falling; Z83.3 Family history of diabetes mellitus; Z82.49 Family history of ischemic heart disease and other diseases of the circulatory system; Z79.01 Long term (current) use of anticoagulants; Z79.82 Long term (current) use of aspirin; Z79.899 Other long term (current) drug therapy
CPT/HCPCS: 36415; 70450; 72192; 80048; 80053; 80061; 81003; 82550; 82553; 82565; 83880; 84443; 84484; 84520; 85025; 85610; 85730; 86140; 93005; 93306; 93454; 99284; A9270-GY; J1644; J2060; J2250; J2270; J3010

== ENCOUNTER 2019-10-19 14:18 | Inpatient (IN) ==
[2019-10-19] MEDS ORDERED: Pancrelipase 5,000 units CAP PO ONE (16:54)
[2019-10-19] MEDS ORDERED: Sodium Bicarb 650 mg (ANTACID) TAB PO ONE (16:55)
[2019-10-19] MEDS ORDERED: Metoprolol Tartrate 5 mg VIAL 5 ml VIAL (1 mg/ml) IV PRN (20:58)
[2019-10-19] MEDS ORDERED: Carbidopa/Levodopa ODT (NF) 25/100 ODT SL SCH (21:00)
[2019-10-19] MEDS ORDERED: CMCS:Carbidopa/Levodopa ODT (NF) 25/100 ODT SL SCH (21:01)
[2019-10-20] MEDS: NS 0.9% 1000 ml BAG 1,000 ML IV SCH ×3 (01:05→20:41)
[2019-10-20] MEDS: Metoprolol Tartrate 5 mg VIAL 5 ml VIAL (1 mg/ml) IV SCH ×5 (01:35→22:45)
[2019-10-20] MEDS: Carbidopa/Levodopa ODT (NF) 25/100 ODT SL SCH ×3 (08:38→17:51)
[2019-10-20 16:13] LABS: INR 1.42 (0.82-1.09)
[2019-10-20 16:20] LABS: Calcium 8.9 mg/dL (8.6-10.3); Potassium 4.3 mmol/L (3.5-5.0); Total Bilirubin 0.9 mg/dL (0.2-1.0)
[2019-10-20 16:26] LABS: Albumin/Globulin Ratio 1.1 (1-3); BUN/Creatinine Ratio 43.1 (8-20); EGFR African American 164.4 (>60); EGFR Non-African American 135.9 (>60); Globulin 2.8 g/dL (2-4); Total Protein 5.8 g/dL (6.4-8.9)
[2019-10-20 18:57] LABS: ABS Eosinophils 0.1 10^3/ul (0-0.6); ABS Lymphocytes 0.4 10^3/ul (1.0-4.8); ABS Monocytes 0.4 10^3/ul (0-0.8); ABS Neutrophils 3.5 10^3/ul (1.5-7.7); Hematocrit 35 % (42-52); Lymphocyte % 8.7 %; Mean Corpuscular HGB Conc 34 g/dL (31-36); Mean Corpuscular Hemoglobin 32 pg (27-31); Mean Corpuscular Volume 94 fL (80-94); Mean Platelet Volume 9.8 fL (7.4-10.4); Nucleated Red Blood Cells % 0.1; Platelet Count 205 10^3/uL (150-450); Red Blood Count 3.72 10^6 /uL (4.18-5.48); Red Cell Distribution Width 16 % (10-15); White Blood Count 4.5 10^3/uL (3.5-10.8)
[2019-10-21] MEDS: Metoprolol Tartrate 5 mg VIAL 5 ml VIAL (1 mg/ml) IV SCH ×4 (04:20→21:39)
[2019-10-21 06:27] LABS: INR 1.31 (0.82-1.09)
[2019-10-21] MEDS: Carbidopa/Levodopa ODT (NF) 25/100 ODT SL SCH ×3 (08:53→17:13)
[2019-10-21] MEDS ORDERED: Lidocaine 2% PF 5 ML VIAL ONE (10:32)
[2019-10-21] MEDS ORDERED: ceFAZolin 1 GM ADVAN 1 GM ADDV.VIAL IVPB ONE (10:40)
[2019-10-21] MEDS: NS 0.9% 1000 ml BAG 1,000 ML IV SCH (17:18)
[2019-10-21] MEDS ORDERED: Polyethylene Glycol 3350 17 GM PACKET PEG TUBE PRN (19:31)
[2019-10-22] MEDS: Metoprolol Tartrate 5 mg VIAL 5 ml VIAL (1 mg/ml) IV SCH ×2 (03:08→11:37)
[2019-10-22] MEDS: Carbidopa/Levodopa ODT (NF) 25/100 ODT SL SCH ×2 (09:11→14:56)
[2019-10-22 11:47] VITALS: BP 135/60
== END 2019-10-22 16:12 | DRG 394 ==
LOC: SSU 14:18 → ED 14:18 → SSU 10-20 09:52
PROVIDERS: ADMIT Hospitalist; ATTEND Internal Medicine
PROC: [UNRECOGNIZED PROCEDURE] (2019-10-21 11:05)

== ENCOUNTER 2019-11-16 18:10 | Inpatient (IN) ==
[2019-11-16] MEDS ORDERED: Ondansetron 4 mg VIAL 2 MG/ML 2 ml VIAL IV PRN (20:01)
[2019-11-16 20:45] LABS: ABS Eosinophils 0.1 10^3/ul (0-0.6); ABS Lymphocytes 0.5 10^3/ul (1.0-4.8); ABS Monocytes 0.8 10^3/ul (0-0.8); ABS Neutrophils 5.7 10^3/ul (1.5-7.7); Eosinophil % 1.5 %; Hematocrit 37 % (42-52); Hemoglobin 12.2 g/dL (14.0-18.0); Lymphocyte % 6.4 %; Mean Corpuscular HGB Conc 33 g/dL (31-36); Mean Corpuscular Hemoglobin 32 pg (27-31); Mean Corpuscular Volume 95 fL (80-94); Mean Platelet Volume 9.5 fL (7.4-10.4); Platelet Count 280 10^3/uL (150-450); Red Blood Count 3.84 10^6 /uL (4.18-5.48); Red Cell Distribution Width 15 % (10-15)
[2019-11-16 20:54] LABS: Activated Partial Thrombo Time 34.7 seconds (26.0-38.0); INR 1.48 (0.82-1.09)
[2019-11-16 21:03] LABS: Albumin 3.4 g/dL (3.2-5.2); Albumin/Globulin Ratio 1.1 (1-3); BUN/Creatinine Ratio 45.2 (8-20); Calcium 9.2 mg/dL (8.6-10.3); EGFR African American 152.2 (>60); EGFR Non-African American 125.8 (>60); Potassium 4.6 mmol/L (3.5-5.0); Total Bilirubin 0.6 mg/dL (0.2-1.0); Total Protein 6.4 g/dL (6.4-8.9)
[2019-11-16] MEDS ORDERED: Polyethylene Glycol 3350 17 GM PACKET PEG TUBE PRN (21:16)
[2019-11-16] MEDS ORDERED: Lorazepam PYXIS KEY PRN (21:19)
[2019-11-16] MEDS ORDERED: Carbidopa/Levodop 25/100 MG TAB G TUBE SCH (22:00)
[2019-11-16] MEDS ORDERED: Atropine 1% (ORAL/SL) 15 ML BTL SL PRN ×2 (22:24)
[2019-11-17] MEDS: LORazepam 2 mg VIAL 1 ml IV PUSH PRN (02:53)
[2019-11-17 05:07] LABS: ABS Lymphocytes 0.4 10^3/ul (1.0-4.8); ABS Monocytes 1.1 10^3/ul (0-0.8); ABS Neutrophils 7.8 10^3/ul (1.5-7.7); Eosinophil % 0.2 %; Hematocrit 34 % (42-52); Hemoglobin 11.4 g/dL (14.0-18.0); Lymphocyte % 4.5 %; Mean Corpuscular HGB Conc 34 g/dL (31-36); Mean Corpuscular Hemoglobin 33 pg (27-31); Mean Corpuscular Volume 95 fL (80-94); Mean Platelet Volume 9.5 fL (7.4-10.4); Nucleated Red Blood Cells % 0.1; Platelet Count 251 10^3/uL (150-450); Red Blood Count 3.52 10^6 /uL (4.18-5.48); Red Cell Distribution Width 15 % (10-15); White Blood Count 9.3 10^3/uL (3.5-10.8)
[2019-11-17 05:32] LABS: BUN/Creatinine Ratio 41.8 (8-20); Calcium 8.9 mg/dL (8.6-10.3); EGFR African American 139.2 (>60); Potassium 4.7 mmol/L (3.5-5.0)
[2019-11-17] MEDS ORDERED: Furosemide 20 mg/2 ml IV VIAL IV ONE (09:00)
[2019-11-17] MEDS ORDERED: LACTOSE REDUCED FOOD WITH FIBR FEED TUBE SCH (09:00)
[2019-11-17] MEDS: Enoxaparin 40 MG/0.4 ML SYR SUBCUT SCH (09:57)
[2019-11-17] MEDS: Carbidopa/Levodop 25/100 MG TAB G TUBE SCH ×3 (09:57→17:15)
[2019-11-17] MEDS: ROTIGOTINE 2 MG TOPICAL SCH (09:58)
[2019-11-17 12:50] LABS: Folate 17.8 ng/mL (>3.99)
[2019-11-18 05:49] LABS: ABS Eosinophils 0.2 10^3/ul (0-0.6); ABS Lymphocytes 0.6 10^3/ul (1.0-4.8); ABS Neutrophils 4.9 10^3/ul (1.5-7.7); Eosinophil % 2.7 %; Hematocrit 32 % (42-52); Hemoglobin 10.9 g/dL (14.0-18.0); Lymphocyte % 8.4 %; Mean Corpuscular HGB Conc 34 g/dL (31-36); Mean Corpuscular Hemoglobin 32 pg (27-31); Mean Corpuscular Volume 94 fL (80-94); Mean Platelet Volume 9.4 fL (7.4-10.4); Nucleated Red Blood Cells % 0.1; Platelet Count 234 10^3/uL (150-450); Red Blood Count 3.43 10^6 /uL (4.18-5.48); Red Cell Distribution Width 15 % (10-15); White Blood Count 6.7 10^3/uL (3.5-10.8)
[2019-11-18 06:05] LABS: Calcium 8.6 mg/dL (8.6-10.3); EGFR African American 158.1 (>60); EGFR Non-African American 130.6 (>60); Magnesium 1.9 mg/dL (1.9-2.7); Potassium 3.8 mmol/L (3.5-5.0)
[2019-11-18] MEDS: Carbidopa/Levodop 25/100 MG TAB G TUBE SCH ×3 (10:28→17:25)
[2019-11-18] MEDS: Enoxaparin 40 MG/0.4 ML SYR SUBCUT SCH (10:30)
[2019-11-18] MEDS: ROTIGOTINE 2 MG TOPICAL SCH (10:30)
[2019-11-19] MEDS: Carbidopa/Levodop 25/100 MG TAB G TUBE SCH ×3 (09:54→17:12)
[2019-11-19] MEDS: Enoxaparin 40 MG/0.4 ML SYR SUBCUT SCH (09:59)
[2019-11-19] MEDS: ROTIGOTINE 2 MG TOPICAL SCH (10:01)
[2019-11-19] MEDS ORDERED: Scopolamine PATCH Remove NOTE PATCH OFF SCH (21:00)
[2019-11-20] MEDS ORDERED: Furosemide 20 mg/2 ml IV VIAL IV SLOW PU ONE (04:16)
[2019-11-20 07:48] LABS: ABS Eosinophils 0.1 10^3/ul (0-0.6); ABS Lymphocytes 0.3 10^3/ul (1.0-4.8); ABS Monocytes 0.8 10^3/ul (0-0.8); ABS Neutrophils 8.2 10^3/ul (1.5-7.7); Eosinophil % 0.7 %; Hematocrit 31 % (42-52); Lymphocyte % 3.3 %; Mean Corpuscular HGB Conc 35 g/dL (31-36); Mean Corpuscular Hemoglobin 33 pg (27-31); Mean Corpuscular Volume 94 fL (80-94); Mean Platelet Volume 9.6 fL (7.4-10.4); Platelet Count 252 10^3/uL (150-450); Red Blood Count 3.32 10^6 /uL (4.18-5.48); Red Cell Distribution Width 15 % (10-15); White Blood Count 9.4 10^3/uL (3.5-10.8)
[2019-11-20] MEDS: Enoxaparin 40 MG/0.4 ML SYR SUBCUT SCH (08:47)
[2019-11-20] MEDS: ROTIGOTINE 2 MG TOPICAL SCH (08:48)
[2019-11-20] MEDS: Carbidopa/Levodop 25/100 MG TAB G TUBE SCH ×3 (09:03→17:22)
[2019-11-20] MEDS: Glycopyrrolate IV 0.2 MG/ML 1 ML VIAL IV SLOW PU PRN (18:33)
[2019-11-20] MEDS ORDERED: Piperacillin/Tazobac ADVAN 3.375 GM in NS 0.9% 100 ml BAG 100 ML IVPB ONE (18:33)
[2019-11-20] MEDS ORDERED: Zosyn per Pharmacy NOTE FOLLOW UP SCH (19:00)
[2019-11-20] MEDS ORDERED: ZOSYN 3.375 GM Q8H per EXTENDED INFUSION IV SCH (23:30)
[2019-11-21] MEDS: Glycopyrrolate IV 0.2 MG/ML 1 ML VIAL IV SLOW PU PRN (04:15)
[2019-11-21] MEDS: ZOSYN 3.375 GM Q8H per EXTENDED INFUSION IV SCH ×3 (06:04→21:14)
[2019-11-21] MEDS ORDERED: Furosemide 40 mg/4 ml IV VIAL IV ONE (09:59)
[2019-11-21] MEDS: Enoxaparin 40 MG/0.4 ML SYR SUBCUT SCH (10:39)
[2019-11-21] MEDS: ROTIGOTINE 2 MG TOPICAL SCH (10:39)
[2019-11-21] MEDS: Carbidopa/Levodop 25/100 MG TAB G TUBE SCH ×3 (10:41→17:24)
[2019-11-21 12:57] LABS: ABS Lymphocytes 0.2 10^3/ul (1.0-4.8); ABS Monocytes 1.1 10^3/ul (0-0.8); ABS Neutrophils 12.9 10^3/ul (1.5-7.7); Hematocrit 31 % (42-52); Hemoglobin 10.4 g/dL (14.0-18.0); Lymphocyte % 1.1 %; Mean Corpuscular HGB Conc 34 g/dL (31-36); Mean Corpuscular Hemoglobin 32 pg (27-31); Mean Corpuscular Volume 95 fL (80-94); Mean Platelet Volume 9.3 fL (7.4-10.4); Platelet Count 246 10^3/uL (150-450); Red Blood Count 3.23 10^6 /uL (4.18-5.48); Red Cell Distribution Width 15 % (10-15); White Blood Count 14.2 10^3/uL (3.5-10.8)
[2019-11-21 13:15] LABS: BUN/Creatinine Ratio 45.1 (8-20); Calcium 8.7 mg/dL (8.6-10.3); EGFR African American 130.2 (>60); EGFR Non-African American 107.6 (>60); Potassium 3.8 mmol/L (3.5-5.0)
[2019-11-21] MEDS: LORazepam 2 mg VIAL 1 ml IV PUSH PRN ×2 (13:16→19:09)
[2019-11-21] MEDS ORDERED: GLYCOPYRROLATE 1 MG PO PRN (15:20)
[2019-11-21] MEDS ORDERED: GLYCOPYRROLATE 1 MG PEG TUBE PRN (16:19)
[2019-11-22] MEDS: ZOSYN 3.375 GM Q8H per EXTENDED INFUSION IV SCH ×2 (05:03→13:30)
[2019-11-22 05:05] LABS: ABS Eosinophils 0.2 10^3/ul (0-0.6); ABS Lymphocytes 0.5 10^3/ul (1.0-4.8); ABS Monocytes 0.8 10^3/ul (0-0.8); ABS Neutrophils 4.1 10^3/ul (1.5-7.7); Eosinophil % 2.9 %; Hematocrit 33 % (42-52); Lymphocyte % 8.4 %; Mean Corpuscular HGB Conc 34 g/dL (31-36); Mean Corpuscular Hemoglobin 32 pg (27-31); Mean Corpuscular Volume 95 fL (80-94); Mean Platelet Volume 9.3 fL (7.4-10.4); Nucleated Red Blood Cells % 0.1; Platelet Count 248 10^3/uL (150-450); Red Blood Count 3.42 10^6 /uL (4.18-5.48); Red Cell Distribution Width 15 % (10-15); White Blood Count 5.6 10^3/uL (3.5-10.8)
[2019-11-22 05:37] LABS: Calcium 8.6 mg/dL (8.6-10.3); Potassium 3.6 mmol/L (3.5-5.0)
[2019-11-22 05:43] LABS: BUN/Creatinine Ratio 41.1 (8-20); EGFR African American 126.1 (>60); EGFR Non-African American 104.2 (>60)
[2019-11-22] MEDS: LORazepam 2 mg VIAL 1 ml IV PUSH PRN ×2 (07:40→14:32)
[2019-11-22] MEDS: ROTIGOTINE 2 MG TOPICAL SCH (08:57)
[2019-11-22] MEDS: Enoxaparin 40 MG/0.4 ML SYR SUBCUT SCH (08:58)
[2019-11-22] MEDS: Carbidopa/Levodop 25/100 MG TAB G TUBE SCH ×3 (09:01→17:19)
[2019-11-22] MEDS ORDERED: Morphine 2 MG/ML SYRINGE IV PRN (19:25)
[2019-11-23 08:09] VITALS: BP 156/74
[2019-11-23] MEDS: Enoxaparin 40 MG/0.4 ML SYR SUBCUT SCH (09:05)
[2019-11-23] MEDS: Carbidopa/Levodop 25/100 MG TAB G TUBE SCH (09:06)
[2019-11-23] MEDS: ROTIGOTINE 2 MG TOPICAL SCH (09:07)
== END 2019-11-23 11:15 | disposition hospice, inpatient (51) | DRG 551 ==
LOC: ED 18:10 → SSU 20:01
PROVIDERS: ADMIT Internal Medicine; ATTEND Internal Medicine